=== PATIENT | female | born 1955 | race Caucasian/White ===

== ENCOUNTER 2020-05-21 08:55 | Outpatient (CLI) | payer BC, SELFPAY ==
--- NOTE | ~2020-05-21 | DEXA_ITS ---
Bone Density Report Name: Nathaly Harmon Age: 64 Sex: Female Ethnicity: White Date of : 1955 Indication: osteopenia; parental hip fracture; height loss; hysterectomy Referring Provider: JERMAINE MARCUS Study: Bone densitometry was performed. Exam Date: May 21, 2020 Accession number: [id number] Bone Density: Region BMD T-score Z-score Classification AP Spine (L1-L4) 0.929 -1.1 0.6 Osteopenia Femoral Neck (Left) 0.731 -1.1 0.4 Osteopenia Total Hip (Left) 0.791 -1.2 -0.1 Osteopenia Total Hip Bilateral Avg 0.805 -1.1 0.0 Osteopenia Femoral Neck (Right) 0.700 -1.3 0.1 Osteopenia Total Hip (Right) 0.818 -1.0 0.1 Normal World Health Organization criteria for BMD impression classify patients as: Normal (T-score at or above -1.0), Osteopenia (T-score between -1.0 and -2.5), or Osteoporosis (T-score at or below -2.5). 10-year Fracture Risk(1): Major Osteoporotic Fracture 16% Hip Fracture 0.7% Reported Risk Factors: [place] (), Neck BMD=0.700, BMI=24.8, parental fracture (1) FRAX(R) Version 3.08. Fracture probability calculated for an untreated patient. Fracture probability may be lower if the patient has received treatment. Previous Exams: Region Exam Age BMD T-score BMD Change BMD Change Date g/cm2 vs Baseline vs Previous AP Spine(L1-L4) 05/21/2020 64 0.929 -1.1 0.054(6.2%)# 0.013(1.4%) 04/29/2018 62 0.916 -1.2 0.042(4.8%)# 0.005(0.6%) 09/27/2014 58 0.911 -1.2 0.036(4.2%)# 0.047(5.5%)# 03/08/2012 56 0.864 -1.7 -0.011(-1.3%)# -0.010(-1.1%)# 10/25/2009 53 0.874 -1.6 -0.001(-0.1%) -0.001(-0.1%) 10/21/2007 51 0.875 -1.6 Total Hip(Left) 05/21/2020 64 0.791 -1.2 -0.084(-9.6%)# 0.034(4.4%)* 04/29/2018 62 0.757 -1.5 -0.117(-13.4%) -0.036(-4.6%)* 09/27/2014 58 0.793 -1.2 -0.081(-9.3%)# -0.085(-9.7%)# 03/08/2012 56 0.879 -0.5 0.004(0.5%)# 0.054(6.6%)# 10/25/2009 53 0.824 -1.0 -0.050(-5.7%)* -0.050(-5.7%)* 10/21/2007 51 0.874 -0.6 Total Hip(Right) 05/21/2020 64 0.818 -1.0 -0.032(-3.7%)# -0.011(-1.3%) 04/29/2018 62 0.829 -0.9 -0.021(-2.4%)# -0.030(-3.5%)* 09/27/2014 58 0.859 -0.7 0.010(1.1%)# 0.034(4.1%)# 03/08/2012 56 0.825 -1.0 -0.024(-2.8%)# -0.022(-2.6%)# 10/25/2009 53 0.847 -0.8 -0.002(-0.2%) -0.002(-0.2%) 10/21/2007 51 0.849 -0.8 *Denotes significance at 95% confidence level, LSC for AP Spine = 0.022 g/cm2, LSC for Total Hip = 0.027 g/cm2 Clinical Information Provided by Patient:
--- NOTE | ~2020-05-21 | MM_ITS ---
EXAMINATION: MM screening [facility] w johana HISTORY: Screening TECHNIQUE: Craniocaudal and mediolateral oblique 3-D tomosynthesis images were obtained and synthetic 2-D images were generated. CAD analysis was submitted and interpreted. COMPARISON: Comparison to multiple prior studies sequentially, with oldest reviewed study dated 03/2013. BREAST PARENCHYMAL COMPOSITION: There are scattered areas of fibroglandular density. FINDINGS: There is no evidence of suspicious mass, calcification, or architectural distortion to sugg est malignancy in either breast. There has been no suspicious interval change. IMPRESSION: 1. No mammographic evidence of malignancy. 2. Recommend routine screening mammography in one year. BI-RADS Category 1: Negative Reviewed, dictated and finalized at location A.
== END 2020-05-21 08:56 | disposition home or self-care (01) ==
LOC: ANHIMG 08:57
PROVIDERS: PCP Internal Medicine; Visit Provider Obstetrics & Gynecology
DX: Z78.0 Asymptomatic menopausal state (principal); Z12.31 Encounter for screening mammogram for malignant neoplasm of breast; M85.80 Other specified disorders of bone density and structure, unspecified site
CPT/HCPCS: 77063; 77067; 77080

== ENCOUNTER → 2020-11-14 13:50 | Outpatient (CLI) | payer BC, SELFPAY ==
--- NOTE | ~2020-11-14 | CT_ITS ---
EXAMINATION: CT abdomen pelvis wo/w con DATE: 11/14/2020 14:32 INDICATION: Hematuria TECHNIQUE: Computed tomography (CT) of the abdomen and pelvis was performed without intravenous contr ast. CT of the abdomen and pelvis was then performed with a total of 130 mL Omnipaque 350 intravenous contrast using a double-bolus technique for simultaneous opacification of the renal parenchyma and r enal collecting system. The dose-length product (DLP) was 1103.00 mGy-cm. Automated exposure control and iterative reconstruction technique were employed. COMPARISON: None FINDINGS: The lung bases are clear. The heart size is normal. The liver, spleen,, gallbladder, and ad renal glands are normal. Pancreas divisum is noted. No stones are present in the kidneys, ureters, or bladder. There is moderate to severe right hydronephrosis with abrupt transition at the ureteropelvi c junction. The remaining ureter is normal in caliber. No suspicious renal or urothelial lesion is id entified. There is calcified atherosclerosis of the aorta and many of the other arteries. No patholog ically enlarged abdominal or pelvic lymph nodes are identified. There is no free intraperitoneal gas or evidence of bowel obstruction. The appendix is normal. There is severe lumbar spondylosis. IMPRESSION: 1. Moderate to severe right hydronephrosis with abrupt transition at the ureteropelvic junction, cons istent with UPJ stricture. No suspicious renal or urothelial lesion identified. No urolithiasis. Reviewed, dictated and finalized at location A. IMPRESSION: 1. Moderate to severe right hydronephrosis with abrupt transition at the ureter opelvic junction, consistent with UPJ stricture. No suspicious renal or urothel ial lesion identified. No urolithiasis.
[2020-11-14 14:08] LABS: Estimated Glomerular Filt Rate 50
== END ==
PROVIDERS: PCP Internal Medicine; Visit Provider Internal Medicine
DX: R31.9 Hematuria, unspecified (principal); N13.30 Unspecified hydronephrosis
CPT/HCPCS: 74178; Q9967

== ENCOUNTER 2020-12-07 12:40 | Outpatient (CLI) | payer BC, SELFPAY ==
--- NOTE | ~2020-12-07 | NM_ITS ---
EXAMINATION: MAIK carlton renal scan DATE: 12/07/2020 14:02 INDICATION: Right ureteropelvic junction obstruction. TECHNIQUE: 7.8 mCi Tc-99m MAG3 was administered IV. 40 mg furosemide was administered IV immediately afterward. The patient was scanned in the supine position. A posterior abdominal radionuclide angiog nano was obtained. A subsequent time course of static images of the kidneys, ureters, and bladder was obtained. COMPARISON: CT abdomen and pelvis dated 11/14/2020 FINDINGS: The posterior abdominal radionuclide angiogram and sequential static images show normal size, positio n, and morphology of the kidneys. There is however enlargement of the right renal hilum consistent wi th hydronephrosis as seen on prior CT. Peak renal parenchymal uptake was 1.8 min in left kidney and > 27 min in right kidney (normal peak 3-5 minutes). The relative early renal uptake was 47.5% on the l eft and 52.5% on the right (<40% is abnormal). No abnormalities of the ureters or bladder are seen. T1/2 for clearance of activity from the left kidney and proximal collecting system was 9.7 minutes. T1/2 for clearance of activity from the right kidney and proximal collecting system was indeterminate with continually increasing right renal activity throughout the course of imaging. Notes on interpretation: T1/2 <10 minutes is normal, 10-15 minutes is low grade obstruction of questi onable clinical significance, 15-20 minutes is partial obstruction that is likely clinically signific ant, >20 minutes is high grade obstruction. Note that false positives may be seen with supine positio paul, dehydration, severely dilated nonobstructed kidney, atonic collecting system, poor renal functi on, and chronic furosemide use. IMPRESSION: 1. Symmetric kidney function. 2. No delay in contrast clearance from the left kidney to suggest fixed obstruction. 3. Markedly delayed contrast clearance from the right kidney likely due in part to some degree of ure teropelvic junction obstruction however interpretation is complicated by the severely dilated right r enal pelvis. The relatively symmetric bilateral renal function, actually slightly higher in the right kidney than the left, suggests the obstruction is likely low-grade/partial obstruction. Reviewed, dictated and finalized at location A. IMPRESSION: 1. Symmetric kidney function. 2. No delay in contrast clearance from the left kidney to suggest fixed obstru ction. 3. Markedly delayed contrast clearance from the right kidney likely due in part to some degree of ureteropelvic junction obstruction however interpretation is complicated by the severely dilated right renal pelvis. The relatively symmetr ic bilateral renal function, actually slightly higher in the right kidney than the left, suggests the obstruction is likely low-grade/partial obstruction.
== END 2020-12-07 12:41 | disposition home or self-care (01) ==
PROVIDERS: PCP Internal Medicine; Visit Provider Urology
DX: N13.5 Crossing vessel and stricture of ureter without hydronephrosis (principal)
CPT/HCPCS: 78708; A9562; J1940

== ENCOUNTER 2021-06-25 17:17 | Outpatient (CLI) | payer BC, SELFPAY ==
--- NOTE | ~2021-06-25 | MM_ITS ---
EXAMINATION: MM screening [facility] BI w johana HISTORY: Screening mammogram TECHNIQUE: Craniocaudal and mediolateral oblique 3-D tomosynthesis images were obtained and synthetic 2-D images were generated. CAD analysis was submitted and interpreted. COMPARISON: 05/21/2020, 05/12/2019, 04/29/2018 BREAST PARENCHYMAL COMPOSITION: There are scattered areas of fibroglandular density. FINDINGS: There is no evidence of suspicious mass, calcification, or architectural distortion to sugg est malignancy in either breast. There has been no suspicious interval change. IMPRESSION: 1. No mammographic evidence of malignancy. 2. Recommend routine screening mammography in one year. BI-RADS Category 1: Negative Reviewed, dictated and finalized at location A. NELER INSOLE
== END 2021-06-25 17:18 | disposition home or self-care (01) ==
LOC: ANHIMG 17:18
PROVIDERS: PCP Internal Medicine; Visit Provider Obstetrics & Gynecology
DX: Z12.31 Encounter for screening mammogram for malignant neoplasm of breast (principal)
CPT/HCPCS: 77063; 77067

== ENCOUNTER 2021-08-26 12:45 | Outpatient (CLI) | payer BC, SELFPAY ==
--- NOTE | ~2021-08-26 | NM_ITS ---
EXAMINATION: MAIK carlton renal scan DATE: 08/27/2021 07:34 INDICATION: Right ureteropelvic junction obstruction TECHNIQUE: 7.9 mCi Tc-99m MAG3 was administered IV. 40 mg furosemide was administered IV immediately afterward. The patient was scanned in the supine position. A posterior abdominal radionuclide angiog nano was obtained. A subsequent time course of static images of the kidneys, ureters, and bladder was obtained. COMPARISON: None FINDINGS: The posterior abdominal radionuclide angiogram and sequential static images show normal size, positio n, and morphology of the kidneys. Peak renal parenchymal uptake was 3.5 min in left kidney and 5.5 mi n in right kidney (normal peak 3-5 minutes). The relative early renal uptake was 46% on the left and 54% on the right (<40% is abnormal). Asymmetric increased activity seen at the right renal pelvis on the delayed images consistent with at least mild hydronephrosis. No abnormalities of the ureters or bladder are seen. T1/2 for clearance of activity from the left kidney and proximal collecting system was 11 minutes. T1/2 for clearance of activity from the right kidney and proximal collecting system was 23 minutes. Notes on interpretation: T1/2 <10 minutes is normal, 10-15 minutes is low grade obstruction of questi onable clinical significance, 15-20 minutes is partial obstruction that is likely clinically signific ant, >20 minutes is high grade obstruction. Note that false positives may be seen with supine positio paul, dehydration, severely dilated nonobstructed kidney, atonic collecting system, poor renal functi on, and chronic furosemide use. IMPRESSION: 1. Symmetric kidney function. 2. Delayed activity clearance from the right kidney with at least mild right hydronephrosis consiste nt with ureteropelvic junction obstruction which has improved since the prior study. Quantitatively t his would be consistent with a high-grade obstruction however as previously detailed, given the prese rved relatively symmetric renal function the degree of obstruction may be exaggerated by residual dil ation of the renal pelvis. Reviewed, dictated and finalized at location A. [employer] IMPRESSION: 1. Symmetric kidney function. 2. Delayed activity clearance from the right kidney with at least mild right h ydronephrosis consistent with ureteropelvic junction obstruction which has impr alfredo since the prior study. Quantitatively this would be consistent with a high -grade obstruction however as previously detailed, given the preserved relative ly symmetric renal function the degree of obstruction may be exaggerated by res idual dilation of the renal pelvis.
== END 2021-08-26 12:46 | disposition home or self-care (01) ==
LOC: ANHIMG 12:45
PROVIDERS: PCP Internal Medicine; Visit Provider Urology
DX: N13.5 Crossing vessel and stricture of ureter without hydronephrosis (principal)
CPT/HCPCS: 78708; A9562; J1940

== ENCOUNTER 2022-04-08 08:10 | Outpatient (CLI) | payer BC, SELFPAY ==
--- NOTE | 2022-04-08 08:57 | ECG_ITS ---
Measurements Intervals [place] Rate: 68 P: 63 HI: 134 QRS: 25 QRSD: 94 T: 70 QT: 416 QTc: 445 Interpretive Statements SINUS RHYTHM NONSPECIFIC T-WAVE ABNORMALITY Electronically Signed On 04-08-2022 11:43:17 CDT by Porter Veras M.D.
[2022-04-08 09:29] LABS: Basophils Percent Auto 0.4 % (0.2-1.2); Eosinophils Absolute Auto 0.1 K/mm3 (0-0.3); Eosinophils Percent Auto 1.6 % (0-4.4); Hematocrit 45.2 % (37.0-47.0); Immature Granulocyte Absolute 0.01 K/mm3 (0.00-0.031); Immature Granulocyte Percent A 0.1 % (0-0.5); Lymphocytes Absolute Auto 1.65 K/mm3 (0.9-3.2); Lymphocytes Percent Auto 24.4 % (18.3-44.2); Mean Corpuscular HGB Conc 33.2 g/dl (32-36); Mean Corpuscular Hemoglobin 31.9 pg (26-34); Mean Corpuscular Volume 96.2 fl (80-100); Monocytes Absolute Auto 0.7 K/mm3 (0.1-0.6); Monocytes Percent Auto 10.1 % (2.6-8.5); Neutrophils Absolute Auto 4.3 K/mm3 (1.3-6.7); Neutrophils Percent Auto 63.4 % (45.5-73.1); Platelet Count Result 191 k/mm3 (150-375); Red Cell Distribution Width 12.2 % (11.5-14.5); White Blood Count 6.8 K/mm3 (4.5-10.0)
[2022-04-08 09:39] LABS: Urine Cotinine NEGATIVE
[2022-04-08 09:46] LABS: Albumin Level 4.6 g/dL (3.5-5.1); Estimated Glomerular Filt Rate 56; Glucose 105 mg/dL (65-110)
[2022-04-08 09:54] LABS: Hemoglobin A1C 5.4 % (<5.7)
== END 2022-04-08 08:11 | disposition home or self-care (01) ==
PROVIDERS: PCP Internal Medicine; Visit Provider Orthopaedic Surgery
DX: Z01.818 Encounter for other preprocedural examination (principal); M17.12 Unilateral primary osteoarthritis, left knee; R94.31 Abnormal electrocardiogram [ECG] [EKG]
CPT/HCPCS: 80307; 82040; 82565; 82947; 83036; 85025; 86850; 86900; 86901; 87081; 93005

== ENCOUNTER 2022-04-21 00:12 | Day surgery (SDC) | payer BC, SELFPAY ==
[2022-04-08 07:45] VITALS: BP 142/86; PULSE 80; RESP 18; TEMP 37.1; O2SAT 100; BMI 24.2
--- NOTE | 2022-04-08 07:46 | PC.NURSE ---
Addendum entered by Jolene Carreon RN 04/08/22 08:51: PT AWARE TO ARRIVE @ 0830 THE MORNING OF SURGERY 04/21/22 Original Note: PRE-OP INSTRUCTIONS, PLEASE READ CAREFULLY Report to the Outpatient Waiting Room, entrance under the green pavilion located off [facility], at time _1030_ on date _04/21/22_. OR Time: _1030_. PACK A SMALL OVERNIGHT BAG AND LEAVE IN THE CAR, ALONG WITH YOUR WALKER. - A mask is required within the hospital. - You and your visitor will be asked to self-screen and do not enter if you have any COVID symptoms. - Only one visitor and NO children visitors are allowed at this time. - The patient visitor is requested to leave or wait in car when not with patient due to restrictions. - VISITING HOURS 10AM-8PM, PARK IN FRONT [facility] AND USE MAIN HOSPITAL ENTRANCE Patients may have clear liquids (water, carbonated beverages, clear teas, apple juice) until 3 hours prior to surgery (0730 AM) with a maximum of 20 ounces. - No food from midnight until time of surgery Take the following medications with a SIP of water the morning of surgery: _NONE_ Medications to discontinue per ANESTHESIA -_VITAMINS/SUPPLEMENTS 3 DAYS PRIOR TO SURGERY, Date to take last dose 04/17/22_ Please no make-up, nail sudanese, hairspray, perfume, deodorant, or body powder the day of surgery. No jewelry (including any body piercings) or valuables the day of surgery, leave them at home. Please take a shower or bath the night before, or the morning of, surgery with an antibacterial soap. Wear comfortable, loose fitting clothing. - Jewelry must be removed prior to entering the operating room. Rings and piercings that are not removed may be cut off. - The hospital will not accept responsibility for valuables. - Please leave all valuables, including medications, at home the day of surgery. If you are going home after surgery, a licensed fleet driver must drive you home. - NO public transportation without another adult. - We recommend that an adult stay with you for 24 hours following discharge. - We also recommend that you do not drive, make important decision, drink alcoholic beverages, or take any drugs that were not prescribed by your health care provider for at least 24 hours after your discharge time. Follow any additional instructions given to you from your surgeon. If you or anyone in your household have experienced Covid symptoms in the past week, please notify your surgeon or the nurse liaison at the phone number below for possible testing. Instructions given to _PT_and asked if any additional questions and then verbalized understanding. Patient advised to call surgeon office or pre surgery nurse liaison [phone] if any additional questions.
[2022-04-21] VITALS (14 sets, daily range): BP systolic 124–149; BP diastolic 61–82; PULSE 72–94; RESP 12–20; TEMP 36.2–37.4; O2SAT 96–100
--- NOTE | ~2022-04-21 | XR_ITS ---
EXAMINATION: XR knee LT 2V DATE: 04/21/2022 13:39 INDICATION: Total left knee arthroplasty. Postop. TECHNIQUE: 2 views of left knee were obtained. COMPARISON: Left knee radiograph 01/29/2022 FINDINGS: There is a total left knee arthroplasty with patellar resurfacing in near-anatomic alignmen t. No fracture. There is gas in the knee joint and soft tissues, consistent with recent surgery. IMPRESSION: 1. Total left knee arthroplasty in near-anatomic alignment. Reviewed, dictated and finalized at location A.
--- NOTE | 2022-04-21 06:28 | WPDANESEPPF ---
Anes - Initial Pre Proc Eval Procedure: Operation Date: 04/21/22 10:30 Proposed Procedures p Left Total Knee Arthroplasty - Gary Box MD Date/Time: 04/21/22 06:28 Surgeon: Gary Box MD Pre Op Diagnosis: O.A. Left Knee Patient Data Age: 66 Gender: F Height: 1.61 m Weight: 63.1 kg Last Vital Signs Temp 37.1 C 04/08/22 07:45 Pulse 80 04/08/22 07:45 Resp 18 04/08/22 07:45 BP 142/86 H 04/08/22 07:45 Pulse Ox 100 04/08/22 07:45 O2 Del Method Room Air 04/08/22 07:45 Allergies Allergy/AdvReac Type Severity Reaction Status Date / Time No Known Allergies Allergy Verified 04/16/22 09:09 Home Medications Medication Instructions Recorded Confirmed Type calcium carb-vit D3-minerals 600 1 tablet PO BID 07/12/20 04/16/22 History mg calcium-400 unit tablet folic acid 0.8 mg capsule 0.8 mg PO DAILY 07/12/20 04/16/22 History mecobalamin (vitamin B12) 1,000 1,000 mcg sublingual DAILY 07/12/20 04/16/22 History mcg disintegrating tablet,sublingual cholecalciferol (vitamin D3) 25 2,000 unit PO DAILY 03/23/21 04/16/22 History mcg (1,000 unit) capsule rosuvastatin 40 mg tablet See Rx Instructions .Route 04/29/21 04/16/22 Rx .COMPLEX #90 tabs ezetimibe 10 mg tablet See Rx Instructions .Route 07/08/21 04/16/22 Rx .COMPLEX #90 tabs rivaroxaban 10 mg tablet (Xarelto) 10 mg PO DAILY PE Prophylaxis s/p 04/16/22 04/16/22 Rx surgery 14 days #14 tabs Patient hx anesthesia problems: none Family hx anesthesia problems: none Results Review: All pre-operative results and documents have been reviewed as part of the pre-operative evaluation. [facility] Past Medical History Medical History BMI 22.0-22.9, adult Colon cancer screening DJD (degenerative joint disease) Elevated glucose Encounter for preventive health examination Encounter for routine adult health examination without abnormal findings Encounter for screening mammogram for malignant neoplasm of breast Hematuria History of colon polyps History of hydronephrosis History of vaginal delivery x 2 Hyperlipidemia On skilled nursing drug therapy Osteoarthritis of left knee Prediabetes Prolapsed bladder Uterine prolapse Vitamin D deficiency Surgical History Surgical History History of hysterectomy, supracervical History of kidney surgery History of sacrocolpopexy Family History Family History Father Family history of diabetes mellitus in first degree relative Diabetes mellitus Mother Family history of cardiovascular disease Family history of aortic aneurysm Social History Social History Smoking status: Never smoker Second hand tobacco smoke exposure: No Additional smoking assessment comments: PT DENIES ALL FORMS OF TOBACCO USE Alcohol intake: never Substance use: never Substance use type: does not use Living arrangements: with family Spiritual care concerns: No Anes - Eval Final PreProcedure Day of Procedure 04/21/22 06:28 Patient weight: normal Heart: regular rate and rhythm Lungs: clear to auscultation and normal air movement Airway: Mallampati scale class II Neurological: alert and oriented Last oral intake: >/= 8 hours ASA classification: II Emergent: no Anesthetic plan: proceed Anesthesia type and monitoring: regional spinal and standard monitoring Results Review: All pre-operative results and documents have been reviewed as part of the pre-operative evaluation. Informed Consent: The patient's anesthetic plan and its attendant risks and benefits were discussed with the patient/family/POA. Questions were solicited and answers provided to the satisfaction of the patient/family/POA.
--- NOTE | 2022-04-21 06:30 | WPDANESPNB ---
Anes - Peripheral Nerve Block Date/Time: 04/21/22 06:30 I have discussed with the patient/family/POA the placement of a peripheral nerve block for post-operative pain management, including associated risks, benefits, complications, and side effects. Alternative methods of post-operative analgesia were detailed. Questions were solicited and answers provided to the satisfaction of the patient/family/POA. Time-Out: A pre-procedural Time-Out was completed immediately before starting the procedure and confirmed: Patient Identification, Site, Procedure, Patient Position and the Availability of Requisite Equipment. Clinical Indications: Acute post-operative pain management requested by the operative surgeon. Nerve Block Insertion Note Anes-nerve block: adductor canal left Patient position: supine Skin prep: chlorhexidine Needle: 22 gauge, stimulating, insulated echogenic needle. Needle length: 80 mm Technique: ultrasound Injectate: bupivacaine 0.5% with epi 5 mcg/ml (30cc - no epi) Observations: tolerated well Complications: none Procedure start time:: 1008 Procedure end time:: 1012
[2022-04-21] MEDS: LACTATED RINGERS 1,000 ML 30 ML IV CONT ×2 (09:29→13:24)
[2022-04-21] MEDS: TRANEXAMIC ACID 1,000MG/ISO100 1,000 MG/100 ML BAG 200 MG IVPB (09:30)
[2022-04-21] MEDS: ACETAMINOPHEN 500 MG TABLET 1000 MG PO (09:31)
--- NOTE | 2022-04-21 09:35 | WPDHPUPDATE1 ---
History and Physical Update Update Date/Time: 04/21/22 09:35 History and Physical has been reviewed, including an updated exam of the patient. There are NO changes in the patient's condition. Risks, benefits, and alternatives have been discussed and questions answered. Patient agrees to proceed with procedure.
[2022-04-21] MEDS: ceFAZolin 2 GM/D5W 50 ML 2 GM/50 ML BAG IVPB ×2 (10:34→17:30)
--- NOTE | 2022-04-21 13:24 | P.OP_ITS ---
Procedure Note - Detailed Date of Procedure 04/21/22 Pre-op Diagnosis O.A. Left Knee Post-op Diagnosis Same Procedure Performed Left total knee replacement Surgeon Gary Box MD [employer] Cezar Bejarano Anesthesia Regional and Spinal Description of Procedure The patient was identified and proper site identified. In the preop holding area the anesthesia team performed a left-sided sub sartorial block after which the patient was taken to the operating room and transferred to the OR table positioning supine taking care to pad the torso and extremities. After a spinal anesthetic was administered, a nonsterile tourniquet was placed high on the left thigh. The left lower extremity was prepped and draped in the usual sterile fashion. The extremity was exsanguinated and with the knee flexed tourniquet was inflated to 300 mmHg remaining up for approximately 74 minutes. An anterior midline incision was made and a mid vastus approach was used. Infra and suprapatellar fat pads were excised. Patella was resected leaving 15 mm thickness and prepared for the size 31 round three peg component. Using the intramedullary guide the distal femur was cut in the proper orientation for the size 65 femoral component. Using the extramedullary guide the tibia was cut perpendicular to the long axis protecting collateral ligaments and popliteal structures. It was sized to a 67. Flexion and extension gaps were balanced through judicious recutting of the distal femur. Trial reduction was undertaken and the weight-bearing line was noted to passed through the center of the joint. Proximal tibia was drilled and punched in the proper orientation for the real component. Trial components were removed. The bone surfaces were washed with pulsatile lavage and dried. The real components were cemented simultaneously. The knee was held in extension and the patella held clamped until the cement had cured. Excess cement was removed from the joint. After trialing it was determined that the 11mm insert gave full range of motion from 0-120 degrees of flexion and the patella tracked in the femoral groove with no lift-off. After final lavage the joint the real size 11 E poly insert was placed and secured with a locking bar. A Betadine and saline wash was placed into the wound and allowed to sit for approximately 3 minutes and then evacuated. Periarticular tissues were infiltrated with 60 cc of the arthroplasty solution. Surgicel powder was applied into the wound during the closure. The extensor mechanism was repaired with #2 Vicryl suture and 0 looped PDS suture. Subcu was reapproximated with 3-0 Monocryl and 2-0 Stratafix with tissue adhesive for the skin. A sterile dressing was applied. She tolerated the procedure well, was awakened and extubated, transferred to the bed and was taken to recovery area in stable condition. There were no known intraoperative complications. Perioperative antibiotics were administered. Estimated Blood Loss 200 Tourniquet Time 74 Drains No Packing No Pathology None sent Complications No immediate complications Condition Stable Disposition PACU
[2022-04-21] MEDS: fentaNYL CITRATE INJ (*CRX) 100 MCG/2 ML VIAL 25 MCG IV PUSH ×4 (13:43→13:49)
--- NOTE | 2022-04-21 15:32 | ADMGEN ---
This patient, Nathaly Harmon, was admitted to Medical Room 246-. Patient/family oriented to hospital policies and general routines including ID bracelet, bed and alarms, visiting hours, pain management, procedures, bathroom and other care routines, personal items, smoking policy, room service/diet, and visiting hours. Information on how to activate the Rapid Response Team has been discussed. Patient/Family are encouraged to report perceived risks to care and to ask questions if they do not understand what they are told or what they should do.
[2022-04-21] MEDS: SODIUM CHLORIDE 0.9% IV 1,000 ML 125 ML IV CONT (15:41)
[2022-04-21] MEDS: SENNA/DOCUSATE SODIUM TABLET 2 TAB PO (17:29)
[2022-04-21] MEDS: KETOROLAC 15 MG/ML VIAL (*BKC) IV PUSH (17:29)
[2022-04-21] MEDS: oxyCODONE/ACETAMINOPHEN (*CRX) 5-325 MG TABLET 1 TABLET PO ×2 (17:30→20:04)
[2022-04-21] MEDS: FAMOTIDINE 20 MG TABLET PO (20:04)
[2022-04-22 00:23] VITALS: BP 123/64; PULSE 75; RESP 16; TEMP 37.2; O2SAT 100
[2022-04-22] MEDS: oxyCODONE/ACETAMINOPHEN (*CRX) 5-325 MG TABLET 1 TABLET PO ×4 (00:36→12:43)
[2022-04-22] MEDS: KETOROLAC 15 MG/ML VIAL (*BKC) IV PUSH ×2 (00:48→05:41)
[2022-04-22] MEDS: ceFAZolin 2 GM/D5W 50 ML 2 GM/50 ML BAG IVPB ×2 (01:00→09:02)
[2022-04-22 04:48] VITALS: BP 113/37; PULSE 82; RESP 16; TEMP 36.6; O2SAT 98
--- NOTE | 2022-04-22 08:07 | PM.DS ---
DS: Admitting Diagnosis Discharge Date 04/22/2022 Admitting Diagnosis Left knee osteoarthritis DS: Discharge Diagnosis Discharge Diagnosis (1) Status post total left knee replacement: Code(s): Z96.652 - Presence of left artificial knee joint Status: Acute Plan 66-year-old female admitted for observation after total left knee replacement on 04/21/[address] Box. She did have some nausea yesterday evening but states that she is feeling much better this morning. Postoperative instructions and wound care discussed with her in detail. She had no further questions. Plan to see therapy today prior to discharge home. She is scheduled in 2 weeks for follow-up with wound check. She was informed to call our office with any further questions or concerns prior to that follow-up. DS: Summary Hospital Course Reason for hospitalization: Observation after outpatient procedure. Hospital Course: 66-year-old female admitted for observation after left total knee replacement with Dr. Box. Uneventful overnight stay. Plan to see therapy today prior to discharge home. Status at Discharge Functional status at discharge: uses cane/walker Overall status at discharge: patient is progressing back to baseline Time Spent with Patient Time attestation: Total time spent providing and/or coordinating discharge services: Time spent: Less than 30 minutes Exam Const: General: comfortable and no acute distress Eyes: General: appearance normal, both eyes and all related structures Resp: Effort & Inspection: normal respiratory effort GI: Inspection: non-distended Skin: General skin exam: normal color Extrem: Other: Exam of the left knee demonstrates a clean and dry surgical dressing. Rrzf-gw-ewxizrul swelling around the surgical site. No numbness or tingling down the leg. She is able to dorsiflex and plantar flex the foot without difficulty. Neurovascular status left lower extremity is intact. Calves negative. Psych: Mental Status: mental status grossly normal Discharge Plan Discharge Patient Disposition: Home, Self-Care Discharge Instructions: 3 times daily for 20 minutes each time, reclining in bed with ice packs over the incision and a pillow underneath the calf of the affected leg, not under the knee. Your wound is glued so it is okay to remove the dressing, get into the shower and get the wound wet in two days. Be sure to read through all the information that came from a my office and the hospital. Most of the answers you will need can be found that material. Call the office with any questions that you cannot find answers to, or concerns you may have. After the Xarelto is completed, start taking one coated 325 mg aspirin daily and do this for four more weeks. Please call [facility] at as soon as possible to arrange for/verify your follow-up appointment to be seen in 2 weeks. Also, call the office with any orthopedic/surgical related questions prior to follow-up. Be sure to get up and move around several times daily but do not overdo it. Take the arthritis formula Tylenol 650 mg tablet on an 8 hour schedule. A good 8 hour schedule is: 6:00 a.m., 2:00 p.m., 10:00 p.m. you may take the prescribed pain medication along with the Tylenol; it is not to be taken instead of the Tylenol. I would like for you to take the Tylenol on a schedule for 2-3 weeks. You have also been given a prescription for Celebrex. This is an anti-inflammatory that you can take for 1 week following surgery. Use the laxative Senekot S twice daily for 2 weeks after discharge while taking the prescription pain medication. Use Miralax once daily for 2 weeks after discharge while taking the prescription pain medication. Once the Xarelto is completed, if you wish to supplement your pain regimen with jkxp-wfl-rhyuosm anti-inflammatory such as Advil or Aleve, that is fine. Follow the label instructions. Do not take this medicine if you
[2022-04-22 08:15] VITALS: O2SAT 95
[2022-04-22 08:48] VITALS: BP 118/62; PULSE 80; RESP 16; TEMP 36.5; O2SAT 96
[2022-04-22] MEDS: CYANOCOBALAMIN 1,000 MCG TABLET 1000 MCG PO (08:50)
[2022-04-22] MEDS: polyethylene glycoL 3350 17 GM POWD.PACK PO (08:50)
[2022-04-22] MEDS: CHOLECALCIFEROL 1,000 UNITS TABLET 2000 UNITS PO (08:50)
[2022-04-22] MEDS: FOLIC ACID 0.4 MG TABLET 0.8 MG PO (08:50)
[2022-04-22] MEDS: SENNA/DOCUSATE SODIUM TABLET 2 TAB PO (08:51)
[2022-04-22] MEDS: EZETIMIBE 5 MG TABLET BY MOUTH (08:51)
[2022-04-22] MEDS: ROSUVASTATIN 10 MG TABLET BY MOUTH (08:51)
[2022-04-22] MEDS: FAMOTIDINE 20 MG TABLET PO (10:01)
[2022-04-22] MEDS: RIVAROXABAN 10 MG TABLET PO (12:43)
[2022-04-22 12:48] VITALS: BP 117/66; PULSE 74; RESP 16; TEMP 36.7; O2SAT 100
--- NOTE | 2022-04-22 13:02 | WPDANESPN ---
Anes - Prog Note Post-Op Date/Time: 04/22/22 10:49 Cardiovascular status: normal Respiratory status: normal Airway patency: baseline Mental status: baseline Post-Op hydration status: normal Vital Signs: Last Vital Signs Temp 97.7 F 04/22/22 08:48 Pulse 80 04/22/22 08:48 Resp 16 04/22/22 08:48 BP 118/62 04/22/22 08:48 Pulse Ox 96 04/22/22 08:48 O2 Del Method Room Air 04/22/22 10:00 O2 Flow Rate 10 04/21/22 13:24 Pain Score (VAS): 3 I/O: Intake & Output 04/21/22 04/22/22 04/22/22 23:59 07:59 15:59 Intake Total 852 150 410 Output Total 600 1400 Balance 252 -1250 410 Post-procedural complaints: nausea Patient Feedback: Patient satisfied with anesthetic care. Pt verbalized good relief with PNB.
[2022-04-22] MEDS: KETOROLAC 10 MG TABLET PO (13:29)
--- NOTE | 2022-04-22 13:35 | PCPTNOTE ---
Patient declined PT this afternoon due to anticipated discharge.
== END 2022-04-22 13:44 | disposition home or self-care (01) ==
LOC: ANHSURGERY 13:23 → ANH2MED 15:21
PROVIDERS: PCP Internal Medicine; Visit Provider Orthopaedic Surgery
PROC: (CPT 27447; principal; 2022-04-21 10:30)
DX: M17.12 Unilateral primary osteoarthritis, left knee (principal); G89.18 Other acute postprocedural pain; R31.9 Hematuria, unspecified; E78.5 Hyperlipidemia, unspecified; R73.03 Prediabetes; M19.90 Unspecified osteoarthritis, unspecified site; E55.9 Vitamin D deficiency, unspecified; Z79.01 Long term (current) use of anticoagulants
CPT/HCPCS: 27447; 64447; 73560; 97110; 97161; 97165; A9270; C1713; C1776; J0171; J0690; J1885; J2250; J2270; J2704; J2795; J3010; J7030; J7120

== ENCOUNTER 2022-07-23 09:15 | Outpatient (RCR) | payer BC, SELFPAY ==
--- NOTE | 2022-04-28 13:58 | PTOPEVAL1 ---
Assessment and note entered by Edouard Dean, PT, DPT Evaluation Information Assessment Status Evaluation Diagnosis L TKA Onset 04/21/22 Subjective Information Pt states she has been trying to complete her exercises at home. She reports her pain is well controlled that she has more stiffness than anything. Pt does have basement stairs that she usually uses daily, she has not used them yet. Reported Pain Level Pain Score 2: Self Report Assessment PT Clinical Summary Nathaly presents to therapy today following a L TKA on 04/21/22. Today she ambulates into the clinic with a wheeled walker. She demonstrates decreased active and passive ROM, active to 90 deg and passive to 100 deg this date. She is currently lacking 30 degs of terminal knee extension during seated long arc quad, and 10 deg of knee extension passively. Skilled physical therapy services are indicated to address the deficits noted above, to manage pain, to promote mobility, and to return to baseline funciton. Plan of Care Interventions Electrical Stimulation,Gait Training,Hot Pack/Cold Pack,Manual Therapy,Neuro Re-education,Patient/ Caregiver Educati,Therapeutic Activities, Therapeutic Exercise PT Services Indicated Yes Treatment Frequency and 2x/wk for 6 wks Duration These treatments will address the objective and functional deficits as defined above. The patient will be advanced safely and appropriately in order for the patient to progress towards his/her prior level of function. Additional exercises will be introduced and as well as a comprehensive home exercise program upon discharge, if needed, ?to ensure carryover of functional gains achieved in the clinic. This treatment plan has been reviewed and agreement upon by the patient.
--- NOTE | 2022-06-05 15:57 | PTOPPROG ---
Assessment and note entered by Edouard Dean, PT, DPT Evaluation Information Assessment Status Progress Diagnosis L TKA Onset 04/21/22 Subjective Information Pt states her exercises are getting easier at home . She states she does her exercises first thing in the morning. She has been running her own errands but she states after a few hours being up and around her leg starts to get sore. She is now walking with a cane. Assessment PT Clinical Summary Nathaly presents to therapy today following 11 visits of therapy to treat her L TKA performed in 04/21/22. Today she demonstrates improved active and passive knee flexion, getting to 100 deg and 120 deg respectively. She continues to lack terminal knee extension in supine as well as in a seated long arc quad. She has progressed to ambulation with a cane without any deviations other than lack of terminal knee extension. Continuation of skilled physical therapy services are indicated to address the remaining deficits, to improve mobility, and to return to baseline function. Plan of Care Interventions Electrical Stimulation,Gait Training,Hot Pack/Cold Pack,Manual Therapy,Neuro Re-education,Patient/ Caregiver Educati,Therapeutic Activities, Therapeutic Exercise PT Services Indicated Yes Treatment Frequency and 2x/wk for 6 wks Duration These treatments will address the objective and functional deficits as defined above. The patient will be advanced safely and appropriately in order for the patient to progress towards his/her prior level of function. Additional exercises will be introduced and as well as a comprehensive home exercise program upon discharge, if needed, ?to ensure carryover of functional gains achieved in the clinic. This treatment plan has been reviewed and agreement upon by the patient.
--- NOTE | 2022-07-17 14:51 | PTOPPROG ---
Assessment and note entered by Edouard Dean, PT, DPT Evaluation Information Assessment Status Progress Diagnosis L TKA Onset 04/21/22 Subjective Information Pt states she feels like she has really improved over the last month. She feels like her ROM has really improved and her walking is better. She met with her ortho doc yesterday and she is able to return to work, light duty working 4 hour shifts. She reports 3/10 pain at the worst in the last week. Pt reports 90% improvement from where she wants to be. Assessment PT Clinical Summary Nathaly presents to therapy today for her progress report following 22 visits of therapy to treat her L TKA on 04/21/22. Today she demonstrates improved L knee strength and ROM. She has passive ROM from 0-125 but actively can only achieve -10 to 105 deg. She has improved her gait speed compared to her last progress note but still demonstrates lack of terminal knee extension during terminal swing and single leg stance phase. Continuation of skilled physical therapy services are indicated to further progress gait, strength, ROM, functional mobility, and to return to baseline function. Plan of Care Interventions Electrical Stimulation,Gait Training,Hot Pack/Cold Pack,Manual Therapy,Neuro Re-education,Patient/ Caregiver Educati,Therapeutic Activities, Therapeutic Exercise PT Services Indicated Yes Treatment Frequency and 1x/wk for 5 wks Duration These treatments will address the objective and functional deficits as defined above. The patient will be advanced safely and appropriately in order for the patient to progress towards his/her prior level of function. Additional exercises will be introduced and as well as a comprehensive home exercise program upon discharge, if needed, ?to ensure carryover of functional gains achieved in the clinic. This treatment plan has been reviewed and agreement upon by the patient.
--- NOTE | 2022-07-25 13:51 | PCPTNOTE ---
This treatment is being continued on visit number [id number]. Please see documentation on both accounts to view progress. Completed interventions, outcomes, and problems have been marked as Inactive to facilitate the copying of the Care plan routine for recurring accounts.
== END 2022-07-25 10:37 | disposition home or self-care (01) ==
LOC: ANHGOSHPT 09:15
PROVIDERS: PCP Internal Medicine; Visit Provider Orthopaedic Surgery
DX: Z47.1 Aftercare following joint replacement surgery (principal); Z96.652 Presence of left artificial knee joint
CPT/HCPCS: 97110; 97112; 97116; 97140; 97161; 97530

== ENCOUNTER 2022-08-13 08:00 | Outpatient (RCR) | payer BC, SELFPAY ==
--- NOTE | 2022-07-25 13:51 | PCPTNOTE ---
The treatment documented on this account is a continuation of the treatment documented on visit number [id number]. Please see documentation on both accounts to view progress. The Plan of Care has been transitioned and updated within the new V#. I have addressed and agree with the discipline specific Problems, Interventions, and Goals for the current certification period. Completed interventions, outcomes, and problems have been marked as Inactive to facilitate the copying of the Care plan routine for recurring accounts.
--- NOTE | 2022-08-13 09:01 | PTOPDC ---
Assessment and note entered by Edouard Dean, PT, DPT Evaluation Information Assessment Status Discharge Diagnosis L TKA Onset 04/21/22 Subjective Information Pt states she continues to see improvements in her knee. She states she is on her last week of 4 hours shifts and next week increases it to 8 hour shifts. She reports good compliance with her HEP. Reported Pain Level Pain Score 0: Self Report Assessment PT Clinical Summary Nathaly presents to therapy today for her progress report following 23 visits of skilled therapy to treat her L TKA performed on 04/21/22. Today she demonstrates active and passive ROM this is mildly actively but WFL passively. She continues to demonstrate lack of terminal knee extension during terminal stance and swing phase with ambulation. She demonstrates good functional mobility, good functional squats, and good body mechanics with functional lifts. She has met or progressed well towards all of her therapy goals and no longer requires skilled therapy services. She will be discharged at this time with the instructions to continue her HEP upon discharge and to follow up with her referring provider if needed. Plan of Care PT Services Indicated No Treatment Frequency and to be discharged Duration
== END 2022-08-13 15:50 | disposition home or self-care (01) ==
LOC: ANHPT 08:00
PROVIDERS: PCP Internal Medicine; Visit Provider Orthopaedic Surgery
DX: Z47.1 Aftercare following joint replacement surgery (principal); Z96.652 Presence of left artificial knee joint
CPT/HCPCS: 97110; 97112; 97140; 97530; 99199

== ENCOUNTER 2022-10-02 14:59 | Outpatient (CLI) | payer BC, SELFPAY ==
--- NOTE | ~2022-10-02 | DEXA_ITS ---
Bone Density Report Name: UZIEL LORENZ Age: 66 Sex: Female Ethnicity: White Date of : 1955 Indication: osteopenia; height loss; hysterectomy; postmenopausal Referring Provider: JERMAINE MARCUS Study: Bone densitometry was performed. Exam Date: October 02, 2022 Accession number: [id number] Bone Density: Region BMD T-score Z-score Classification AP Spine(L1-L4) 0.943 -0.9 0.9 Normal Femoral Neck (Left) 0.681 -1.5 0.0 Osteopenia Total Hip (Left) 0.668 -2.2 -1.0 Osteopenia Femoral Neck (Right) 0.633 -1.9 -0.4 Osteopenia Total Hip (Right) 0.748 -1.6 -0.3 Osteopenia Total Hip Mean 0.708 -1.9 -0.7 Osteopenia World Health Organization criteria for BMD impression classify patients as: Normal (T-score at or above -1.0), Osteopenia (T-score between -1.0 and -2.5), or Osteoporosis (T-score at or below -2.5). 10-year Fracture Risk(1): Major Osteoporotic Fracture 11% Hip Fracture 1.6% Reported Risk Factors: [place] (), Neck BMD=0.633, BMI=24.4 (1) FRAX(R) Version 3.08. Fracture probability calculated for an untreated patient. Fracture probability may be lower if the patient has received treatment. Previous Exams: Region Exam Age BMD T-score BMD Change BMD Change Date g/cm2 vs Baseline vs Previous AP Spine (L1-L4) 10/02/2022 66 0.943 -0.9 0.032 (3.5%)* 0.014 (1.5%) 05/21/2020 64 0.929 -1.1 0.018 (2.0%) 0.013 (1.4%) 04/29/2018 62 0.916 -1.2 0.005 (0.6%) 0.005 (0.6%) 09/27/2014 58 0.911 -1.2 Total Hip(Left) 10/02/2022 66 0.668 -2.2 -0.126 (-15.8% -0.123 (-15.5% 05/21/2020 64 0.791 -1.2 -0.003 (-0.4%) 0.034 (4.4%)* 04/29/2018 62 0.757 -1.5 -0.036 (-4.6%) -0.036 (-4.6%) 09/27/2014 58 0.793 -1.2 Total Hip(Right) 10/02/2022 66 0.748 -1.6 -0.111 (-12.9% -0.069 (-8.5%) 05/21/2020 64 0.818 -1.0 -0.041 (-4.8%) -0.011 (-1.3%) 04/29/2018 62 0.829 -0.9 -0.030 (-3.5%) -0.030 (-3.5%) 09/27/2014 58 0.859 -0.7 *Denotes significance at 95% confidence level, LSC for AP Spine = 0.022 g/cm2, LSC for Total Hip = 0.027 g/cm2 Clinical Information Provided by Patient: Has used the following medications: Vitamin D, Calcium Has the following medical conditions: Hysterectomy Patient maximum height was 65 Drinks caffeinated beverages Onset of menses at age 13 Number of children 2 Impression: The patient has low bone mass, based on the Left Total Hip
--- NOTE | ~2022-10-02 | MM_ITS ---
EXAMINATION: MM screening светлана BI w johana HISTORY: Screening mammogram TECHNIQUE: Craniocaudal and mediolateral oblique 3-D tomosynthesis images were obtained and synthetic 2-D images were generated. CAD analysis was submitted and interpreted. COMPARISON: 06/25/2021, 05/21/2020, 05/12/2019 bilateral screening mammogram examinations BREAST PARENCHYMAL COMPOSITION: There are scattered areas of fibroglandular density. FINDINGS: There is no evidence of suspicious mass, calcification, or architectural distortion to sugg est malignancy in either breast. There has been no suspicious interval change. IMPRESSION: 1. No mammographic evidence of malignancy. 2. Recommend routine screening mammography in one year. BI-RADS Category 1: Negative Reviewed, dictated and finalized at location A. TED HISTORY TOUR GUIDE
== END 2022-10-02 15:00 | disposition home or self-care (01) ==
PROVIDERS: PCP Internal Medicine; Visit Provider Obstetrics & Gynecology
DX: Z12.31 Encounter for screening mammogram for malignant neoplasm of breast (principal); Z78.0 Asymptomatic menopausal state; M85.89 Other specified disorders of bone density and structure, multiple sites
CPT/HCPCS: 77063; 77067; 77080

== ENCOUNTER 2023-03-02 10:13 | Outpatient (CLI) | payer BC, SELFPAY ==
--- NOTE | ~2023-03-02 | US_ITS ---
US retroperitoneal comp 03/02/2023 11:35 Procedure: Realtime transabdominal ultrasound of the kidneys and bladder. Indication: UPJ stricture status post right para. Hematuria. Comparison: CT dated 11/14/2020. Findings: Renal echotexture is normal bilaterally without contour deforming mass or renal calculus. T here is mild bilateral hydronephrosis. The right kidney measures 9.6 cm and left kidney measures 8.4 cm. Bladder within normal limits. Impression: 1: Mild bilateral hydronephrosis. Reviewed, dictated and finalized at location A. Impression: 1: Mild bilateral hydronephrosis.
== END 2023-03-02 10:14 ==
PROVIDERS: PCP Internal Medicine; Visit Provider Urology
DX: N13.30 Unspecified hydronephrosis (principal); T83.8 Other specified complications of genitourinary prosthetic devices, implants and grafts; R31.9 Hematuria, unspecified
CPT/HCPCS: 76770

== ENCOUNTER 2023-03-05 17:02 | Emergency (ER) | payer BC, SELFPAY ==
[2023-03-05 17:25] VITALS: BP 150/75; PULSE 78; RESP 18; TEMP 36.1; O2SAT 98
--- NOTE | 2023-03-05 18:05 | ED.SKABFB ---
HPI - Skin/Abscess/Foreign Bdy General Chief complaint: Skin/Abscess/Foreign Body Stated complaint: rash Source: patient Mode of arrival: ambulatory Limitations: no limitations History of Present Illness HPI narrative: 67-year-old female presenting for complaint of red rash to bilateral lower extremities, first noted yesterday. States this started out pink in color on has spread. Right leg is now bright red in color and more extensive. Rash is only from below knees to ankles. Endorses mild itching. She applied Benadryl cream. She denies any trauma. Denies pain or drainage to the sites. Denies lip, tongue, or throat swelling, shortness of breath or wheezing. Denies changes to soap, detergent, lotion, or any other exposures. No one else in the house or any contacts with similar symptoms. Not taking blood thinner. Related Data Home Medications Medication Instructions Recorded Confirmed calcium carb-vit D3-minerals 600 2 tablet PO DAILY 07/12/20 01/16/23 mg calcium-400 unit tablet folic acid 0.8 mg capsule 0.8 mg PO DAILY 07/12/20 01/16/23 mecobalamin (vitamin B12) 1,000 1,000 mcg sublingual DAILY 07/12/20 01/16/23 mcg disintegrating tablet,sublingual cholecalciferol (vitamin D3) 25 2,000 unit PO DAILY 03/23/21 01/16/23 mcg (1,000 unit) capsule Allergies Allergy/AdvReac Type Severity Reaction Status Date / Time No Known Allergies Allergy Verified 01/16/23 07:02 Review of Systems Review of Systems: CONSTITUTIONAL: Denies body aches, fever, chills, or sweats. EYES: Denies visual changes, redness, or discharge. ENT: Denies rhinorrhea, congestion CARDIOVASCULAR: Denies chest pain, palpitations. RESPIRATORY: Denies cough or dyspnea. GASTROINTESTINAL: Denies abdominal pain, nausea, vomiting, or diarrhea. SKIN: Reports red rash to legs MUSCULOSKELETAL: Denies back pain, joint pain, or myalgia. NEUROLOGIC: Denies headache, numbness, tingling, or weakness. [facility] Past Medical History Medical History BMI 22.0-22.9, adult Colon cancer screening DJD (degenerative joint disease) Encounter for preventive health examination Encounter for routine adult health examination without abnormal findings Encounter for screening mammogram for malignant neoplasm of breast Hematuria History of colon polyps History of hydronephrosis History of vaginal delivery x 2 Hyperlipidemia On fdc drug therapy Osteoarthritis of left knee Prediabetes Prolapsed bladder Uterine prolapse Vitamin D deficiency Surgical History Surgical History History of hysterectomy, supracervical History of kidney surgery History of sacrocolpopexy Status post total left knee replacement 04/21/2022 Total knee replacement status Family History Family History Father Family history of diabetes mellitus in first degree relative Diabetes mellitus Mother Family history of cardiovascular disease Family history of aortic aneurysm Social History Social History Smoking status: Never smoker Second hand tobacco smoke exposure: No Additional smoking assessment comments: PT DENIES ALL FORMS OF TOBACCO USE Alcohol intake: never Substance use: never Substance use type: does not use Lack of Transportation: No Lack of Food: Never True Current Housing: I Have Housing Concerned About Future Housing: No Difficulty Paying for Meds: No Currently Unemployed: No Education: Associate Degree Difficulty w/ Childcare or Family Care: No Living arrangements: with family Spiritual care concerns: No Comments At time of signature, I have reviewed and agree with nursing past medical, surgical, social and family history unless otherwise noted. Please see nursing chart for further information. There
== END 2023-03-05 18:15 | disposition home or self-care (01) ==
PROVIDERS: Emergency Provider Nurse Practitioner Family; PCP Internal Medicine
DX: R23.3 Spontaneous ecchymoses (principal); E78.5 Hyperlipidemia, unspecified; M17.12 Unilateral primary osteoarthritis, left knee; R73.03 Prediabetes; E55.9 Vitamin D deficiency, unspecified; Z96.652 Presence of left artificial knee joint
CPT/HCPCS: 99213; G0463

== ENCOUNTER 2023-03-26 12:49 | Outpatient (CLI) | payer BC, SELFPAY ==
--- NOTE | ~2023-03-26 | CT_ITS ---
EXAMINATION: CT abdomen pelvis wo/w con DATE: 03/26/2023 13:39 INDICATION: UPJ obstruction TECHNIQUE: Computed tomography (CT) of the abdomen and pelvis was performed without intravenous contr ast. CT of the abdomen and pelvis was then performed with a total of 130 mL Omnipaque 350 intravenous contrast using a double-bolus technique for simultaneous opacification of the renal parenchyma and r enal collecting system. The dose-length product (DLP) was 782.48 mGy-cm. Automated exposure control a nd iterative reconstruction technique were employed. COMPARISON: 11/14/2020 FINDINGS: Minimal dependent atelectasis is present in the lung bases. The heart size is normal. There is a small sliding hiatal hernia. The liver, spleen, pancreas, gallbladder, and adrenal glands are n ormal. There is chronic moderate to severe right hydronephrosis with abrupt transition at the uretero pelvic junction. There is mild to moderate left hydronephrosis also with abrupt transition at the ure teropelvic junction. No stones are identified in the kidneys, ureters, or bladder. No suspicious sherri l or urothelial lesion identified. No pathologically enlarged abdominal or pelvic lymph nodes are dahlia ntified. No free intraperitoneal gas or evidence of bowel obstruction. There is calcified atheroscler osis of the aorta and many of the other arteries. The appendix is normal. There is severe lumbar spon dylosis. IMPRESSION: 1. Moderate to severe right and mild to moderate left hydronephrosis with abrupt transition at the ur eteropelvic junctions. No suspicious renal or urothelial lesion identified. Reviewed, dictated and finalized at location L. IMPRESSION: 1. Moderate to severe right and mild to moderate left hydronephrosis with abrup t transition at the ureteropelvic junctions. No suspicious renal or urothelial lesion identified.
--- NOTE | ~2023-03-26 | NM_ITS ---
EXAMINATION: NM lasix renal scan DATE: 03/26/2023 14:57 INDICATION: Right UPJ obstruction TECHNIQUE: 6.9 mCi Tc-99m MAG3 was administered IV. 40 mg furosemide was administered IV immediately afterward. The patient was scanned in the supine position. A posterior abdominal radionuclide angiog nano was obtained. A subsequent time course of static images of the kidneys, ureters, and bladder was obtained. COMPARISON: CT dated 03/26/2023 and Lasix renal scan dated 08/26/2021 FINDINGS: The posterior abdominal radionuclide angiogram and sequential static images show normal size, positio n, and morphology of the kidneys. Peak renal parenchymal uptake was 1.8 min in left kidney and 4.4 mi n in right kidney (normal peak 3-5 minutes). The relative early renal uptake was 42% on the left and 58% on the right (<40% is abnormal). Right hydronephrosis with dilated right renal collecting system with No abnormalities of the ureters or bladder are seen. T1/2 for clearance of activity from the left kidney and proximal collecting system was 14.7 minutes. T1/2 for clearance of activity from the right kidney and proximal collecting system was >30 minutes. Notes on interpretation: T1/2 <10 minutes is normal, 10-15 minutes is low grade obstruction of questi onable clinical significance, 15-20 minutes is partial obstruction that is likely clinically signific ant, >20 minutes is high grade obstruction. Note that false positives may be seen with supine positio paul, dehydration, severely dilated nonobstructed kidney, atonic collecting system, poor renal functi on, and chronic furosemide use. IMPRESSION: 1. Borderline decreased left renal function which contributes 42% of total renal function. 2. Mild delayed activity clearance from the left kidney consistent with low-grade obstruction of janet btful clinical significance and persistent severely decreased activity clearance from the right kidne y which would be consistent with high-grade obstruction. As previously noted however given the relati vely preserved renal function in the right kidney the degree of obstruction may be exaggerated by the persistent chronic elevation of the right renal pelvis. Reviewed, dictated and finalized at location A. IMPRESSION: 1. Borderline decreased left renal function which contributes 42% of total malaika al function. 2. Mild delayed activity clearance from the left kidney consistent with low-gr sara obstruction of doubtful clinical significance and persistent severely decre ased activity clearance from the right kidney which would be consistent with hi gh-grade obstruction. As previously noted however given the relatively preserve d renal function in the right kidney the degree of obstruction may be exaggerat ed by the persistent chronic elevation of the right renal pelvis.
[2023-03-26 13:22] LABS: Estimated Glomerular Filt Rate 50
== END 2023-03-26 12:50 | disposition home or self-care (01) ==
PROVIDERS: PCP Internal Medicine; Visit Provider Urology
DX: N13.5 Crossing vessel and stricture of ureter without hydronephrosis (principal); R94.4 Abnormal results of kidney function studies
CPT/HCPCS: 74178; 78708; A9562; J1940; Q9967

== ENCOUNTER → 2023-05-18 10:22 | Outpatient (CLI) | payer BC, SELFPAY ==
--- NOTE | ~2023-05-18 | US_ITS ---
US retroperitoneal comp 05/18/2023 10:39 Procedure: Realtime transabdominal ultrasound of the kidneys and bladder. Indication: UPJ obstruction. Hematuria. Comparison: Ultrasound dated 03/02/2023 Findings: Renal echotexture is normal bilaterally without contour deforming mass or renal calculus. T here is bilateral hydronephrosis, right greater than left. The right kidney measures 9.6 cm and left kidney measures 10.7 cm. Bladder within normal limits. Impression: 1: Bilateral hydronephrosis, left greater than right. Reviewed, dictated and finalized at location B. Impression: 1: Bilateral hydronephrosis, left greater than right.
== END ==
PROVIDERS: PCP Internal Medicine; Visit Provider Urology
DX: N13.30 Unspecified hydronephrosis (principal)
CPT/HCPCS: 76770

== ENCOUNTER 2023-11-17 16:25 | Outpatient (CLI) | payer BC, SELFPAY ==
--- NOTE | ~2023-11-17 | MM_ITS ---
EXAMINATION: MM screening светлана BI w johana HISTORY: Screening mammogram TECHNIQUE: Craniocaudal and mediolateral oblique 3-D tomosynthesis images were obtained and synthetic 2-D images were generated. CAD analysis was submitted and interpreted. COMPARISON: October 02, 2022, June 25, 2021 bilateral screening mammogram examinations BREAST PARENCHYMAL COMPOSITION: There are scattered areas of fibroglandular density. FINDINGS: There is no evidence of suspicious mass, calcification, or architectural distortion to sugg est malignancy in either breast. There has been no suspicious interval change. IMPRESSION: 1. No mammographic evidence of malignancy. 2. Recommend routine screening mammography in one year. BI-RADS Category 1: Negative Reviewed, dictated and finalized at location A.
== END 2023-11-17 16:26 | disposition home or self-care (01) ==
LOC: ANHIMG 16:28
PROVIDERS: PCP Internal Medicine; Visit Provider Obstetrics & Gynecology
DX: Z12.31 Encounter for screening mammogram for malignant neoplasm of breast (principal)
CPT/HCPCS: 77063; 77067

== ENCOUNTER 2023-12-02 10:50 | Outpatient (CLI) | payer BC, SELFPAY ==
--- NOTE | ~2023-12-02 | US_ITS ---
Renal-Bladder ultrasound Clinical History: Hydronephrosis Technique: Real-time sonographic imaging of the kidneys and urinary bladder was performed. Findings: The right kidney measures 11.8 cm in length and the left kidney measures 10.5 cm. There is no hydronephrosis or renal calculus identified. Renal cortical echogenicity is within normal limits. No renal mass lesion is identified. The urinary bladder is moderately distended at the time of this exam. No intraluminal echoes are iden tified. No abnormal wall thickening is seen. Impression: Unremarkable ultrasound of the kidneys and urinary bladder. Reviewed, dictated and finalized at location M. Impression: Unremarkable ultrasound of the kidneys and urinary bladder.
== END 2023-12-02 10:51 ==
LOC: MICIMG 10:51
PROVIDERS: PCP Internal Medicine; Visit Provider Urology
DX: N13.30 Unspecified hydronephrosis (principal)
CPT/HCPCS: 76775

== ENCOUNTER 2023-12-07 12:47 | Outpatient (CLI) | payer BC, SELFPAY ==
--- NOTE | ~2023-12-07 | NM_ITS ---
EXAMINATION: MAIK carlton renal scan DATE: 12/08/2023 07:37 INDICATION: Hydronephrosis. TECHNIQUE: 7.8 mCi Tc-99m MAG3 was administered IV. 40 mg furosemide was administered IV immediately afterward. The patient was scanned in the supine position. A posterior abdominal radionuclide angiog nano was obtained. A subsequent time course of static images of the kidneys, ureters, and bladder was obtained. COMPARISON: Renal scan 03/26/2023, CT abdomen and pelvis 03/26/2023, kidney ultrasound 12/02/2023 FINDINGS: The posterior abdominal radionuclide angiogram and sequential static images show normal siz e, position, and morphology of the kidneys. Peak renal parenchymal uptake was 4 min in right kidney a nd 3 min in left kidney (normal peak 3-5 minutes). The relative early renal uptake was 52% on the ri ght and 48% on the left (<40% is abnormal). No abnormalities of the ureters or bladder are seen. T1/2 for clearance of activity from the right kidney and proximal collecting system was 16 minutes. T1/2 for clearance of activity from the left kidney and proximal collecting system was 8 minutes. IMPRESSION: 1. Symmetric kidney function. 2. Mildly delayed contrast clearance from right kidney suggesting partial obstruction. The lack of h ydronephrosis on the ultrasound from 12/02/2023 suggests this finding may not be clinically significan t. Reviewed, dictated and finalized at location A. IMPRESSION: 1. Symmetric kidney function. 2. Mildly delayed contrast clearance from right kidney suggesting partial obst ruction. The lack of hydronephrosis on the ultrasound from 12/02/2023 suggests t his finding may not be clinically significant.
== END 2023-12-07 12:48 | disposition home or self-care (01) ==
LOC: ANHIMG 12:48
PROVIDERS: PCP Internal Medicine; Visit Provider Urology
DX: N13.30 Unspecified hydronephrosis (principal)
CPT/HCPCS: 78708; A9562

== ENCOUNTER 2023-12-22 00:12 | Day surgery (SDC) | payer BC, SELFPAY ==
[2023-12-07 14:25] VITALS: BMI 25.5
[2023-12-22 08:54] VITALS: BP 130/78; PULSE 74; RESP 20; TEMP 36.4; O2SAT 100; BMI 25.1
[2023-12-22] MEDS: LACTATED RINGERS 1,000 ML 150 ML IV CONT (08:57)
--- NOTE | 2023-12-22 09:58 | WPDANESEPPF ---
Anes - Initial Pre Proc Eval Procedure: Operation Date: 12/22/23 10:00 Proposed Procedures p Screening Colonoscopy - Estrada Hutson DO Date/Time: 12/22/23 09:58 Surgeon: Estrada Hutson DO Pre Op Diagnosis: History of colon polyps Patient Data Age: 68 Gender: F Height: 1.6 m Weight: 64.3 kg Last Vital Signs Temp 97.6 F 12/22/23 08:54 Pulse 74 12/22/23 08:54 Resp 20 12/22/23 08:54 BP 130/78 12/22/23 08:54 Pulse Ox 100 12/22/23 08:54 O2 Del Method Room Air 12/22/23 08:54 Allergies Allergy/AdvReac Type Severity Reaction Status Date / Time No Known Allergies Allergy Verified 12/22/23 08:52 Home Medications Medication Instructions Recorded Confirmed Type calcium carb-vit D3-minerals 600 2 tablet PO DAILY 07/12/20 12/22/23 History mg calcium-400 unit tablet folic acid 0.8 mg capsule 0.8 mg PO DAILY 07/12/20 12/22/23 History mecobalamin (vitamin B12) 1,000 1,000 mcg sublingual DAILY 07/12/20 12/22/23 History mcg disintegrating tablet,sublingual cholecalciferol (vitamin D3) 25 2,000 unit PO DAILY 03/23/21 12/22/23 History mcg (1,000 unit) capsule ezetimibe 10 mg tablet See Rx Instructions .Route 01/16/23 12/22/23 Rx .COMPLEX #90 tabs rosuvastatin 40 mg tablet See Rx Instructions .Route 10/01/23 12/22/23 Rx .COMPLEX #90 tabs Patient hx anesthesia problems: none Family hx anesthesia problems: none Results Review: All pre-operative results and documents have been reviewed as part of the pre-operative evaluation. [facility] Past Medical History Medical History (Updated 11/10/23 @ 08:14 by Anastasia Pete, [facility]) BMI 22.0-22.9, adult DJD (degenerative joint disease) Hematuria History of colon polyps History of hydronephrosis History of vaginal delivery x 2 Hyperlipidemia On terminal make up operator drug therapy Osteoarthritis of left knee Prediabetes Prolapsed bladder Skin lesion Vitamin D deficiency Surgical History Surgical History History of hysterectomy, supracervical History of kidney surgery History of sacrocolpopexy Status post total left knee replacement 04/21/2022 Total knee replacement status Family History Family History Father Family history of diabetes mellitus in first degree relative Diabetes mellitus Mother Family history of cardiovascular disease Family history of aortic aneurysm Social History Social History Smoking status: Never smoker Second hand tobacco smoke exposure: No Additional smoking assessment comments: PT DENIES ALL FORMS OF TOBACCO USE Alcohol intake: current Alcohol use details: Rarely Substance use: never Substance use type: does not use Lack of Transportation: No Lack of Food: Never True Current Housing: I Have Housing Concerned About Future Housing: No Difficulty Paying for Meds: No Currently Unemployed: No Education: Associate Degree Difficulty w/ Childcare or Family Care: No Living arrangements: other Additional living arrangements comments: with sp Spiritual care concerns: No Anes - Eval Final PreProcedure Day of Procedure 12/22/23 09:58 Patient weight: normal Heart: regular rate and rhythm Lungs: clear to auscultation Airway: Mallampati scale class II Neurological: alert and oriented Last oral intake: >/= 8 hours ASA classification: II Emergent: no Anesthetic plan: proceed Anesthesia type and monitoring: general GIVS and standard monitoring Results Review: All pre-operative results and documents have been reviewed as part of the pre-operative evaluation. Informed Consent: The patient's anesthetic plan and its attendant risks and benefits were discussed with the patient/family/POA. Questions were solicited and answers provided to the satisfaction of the patient/family/POA.
--- NOTE | 2023-12-22 10:46 | PM.IMHP ---
H&P: HPI History of Present Illness Date/Time: 12/22/23 10:46 Chief Complaint: History of colon polyps Narrative: This is a 68-year-old woman who presents for colonoscopy. Her last colonoscopy was 5 years ago and polyps were removed at that time. She denies any hematochezia or melena. She denies any family history of colon cancer. Review of Systems Review of Systems: All systems reviewed & are unremarkable except as noted in HPI and below Constitutional: Constitutional: Denies chills, Denies fever(s), Denies headache(s) and Denies weight loss Eyes: Eyes: Denies change in vision ENT: Denies dizziness, Denies headache(s), Denies neck mass and Denies throat swelling Cardiovascular: Cardiovascular: Denies chest pain, Denies lightheadedness and Denies dyspnea Respiratory: Respiratory: Denies cough, Denies dyspnea and Denies wheezing Gastrointestinal: Gastrointestinal: Denies abdominal pain, Denies change in bowel habits, Denies nausea and Denies vomiting Genitourinary: Genitourinary: Denies hematuria and Denies dysuria Musculoskeletal: Musculoskeletal: Reports as per HPI Integumentary/Breasts: Skin/Breast: Reports as per HPI Neurologic: Denies dizziness and Denies headache(s) Allergic/Immunologic: Allergic/Immunologic: Denies throat swelling and Denies wheezing [facility] Past Medical History Medical History (Updated 11/10/23 @ 08:14 by Anastasia Pete CMA) BMI 22.0-22.9, adult DJD (degenerative joint disease) Hematuria History of colon polyps History of hydronephrosis History of vaginal delivery x 2 Hyperlipidemia On custodial drug therapy Osteoarthritis of left knee Prediabetes Prolapsed bladder Skin lesion Vitamin D deficiency Surgical History Surgical History History of hysterectomy, supracervical History of kidney surgery History of sacrocolpopexy Status post total left knee replacement 04/21/2022 Total knee replacement status Family History Family History Father Family history of diabetes mellitus in first degree relative Diabetes mellitus Mother Family history of cardiovascular disease Family history of aortic aneurysm Social History Social History Smoking status: Never smoker Second hand tobacco smoke exposure: No Additional smoking assessment comments: PT DENIES ALL FORMS OF TOBACCO USE Alcohol intake: current Alcohol use details: Rarely Substance use: never Substance use type: does not use Lack of Transportation: No Lack of Food: Never True Current Housing: I Have Housing Concerned About Future Housing: No Difficulty Paying for Meds: No Currently Unemployed: No Education: Associate Degree Difficulty w/ Childcare or Family Care: No Living arrangements: other Additional living arrangements comments: with sp Spiritual care concerns: No Meds Home Medications and Allergies Home Medications Medication Instructions Recorded Confirmed Type calcium carb-vit D3-minerals 600 2 tablet PO DAILY 07/12/20 12/22/23 History mg calcium-400 unit tablet folic acid 0.8 mg capsule 0.8 mg PO DAILY 07/12/20 12/22/23 History mecobalamin (vitamin B12) 1,000 1,000 mcg sublingual DAILY 07/12/20 12/22/23 History mcg disintegrating tablet,sublingual cholecalciferol (vitamin D3) 25 2,000 unit PO DAILY 03/23/21 12/22/23 History mcg (1,000 unit) capsule ezetimibe 10 mg tablet See Rx Instructions .Route 01/16/23 12/22/23 Rx .COMPLEX #90 tabs rosuvastatin 40 mg tablet See Rx Instructions .Route 10/01/23 12/22/23 Rx .COMPLEX #90 tabs Allergies Allergy/AdvReac Type Severity Reaction Status Date / Time No Known Allergies Allergy Verified 12/22/23 08:52 Vital Signs Vital Signs - 24 hr 12/22/23 08:54 Temperature 36.4 C Pulse Rate 74 Respiratory Rate 20 Blood Pressu
[2023-12-22 11:15] VITALS: BP 105/59; PULSE 65; RESP 17; O2SAT 99
[2023-12-22 11:25] VITALS: BP 104/62; PULSE 63; RESP 19; O2SAT 100
[2023-12-22 11:35] VITALS: BP 122/75; PULSE 64; RESP 18; O2SAT 100
== END 2023-12-22 11:45 | disposition home or self-care (01) ==
PROVIDERS: PCP Internal Medicine; Visit Provider Surgery
PROC: 0DJD8ZZ Inspection of Lower Intestinal Tract, Via Natural or Artificial Opening Endoscopic (ICD-10-PCS; CPT 45378; principal; 2023-12-22 10:00)
DX: Z12.11 Encounter for screening for malignant neoplasm of colon (principal); E78.5 Hyperlipidemia, unspecified; M17.12 Unilateral primary osteoarthritis, left knee; R73.03 Prediabetes; E55.9 Vitamin D deficiency, unspecified; N81.10 Cystocele, unspecified; Z98.890 Other specified postprocedural states; Z96.652 Presence of left artificial knee joint; Z86.010 Personal history of colon polyps; Z87.2 Personal history of diseases of the skin and subcutaneous tissue; Z82.49 Family history of ischemic heart disease and other diseases of the circulatory system
CPT/HCPCS: 45378; J2704; J7120

== ENCOUNTER 2024-10-12 08:12 | Emergency (ER) | payer BC, SELFPAY ==
--- OUTSIDE RECORDS SUMMARY | 2024-10-12 08:18 | XMS_ITS | Referral Summary ---
Author Organization [facility] Address [address] [place] [address] Care Team Providers Care Dental Office Receptionist Name Role Phone Deon Camara MD Primary Care Provider [phone] Rei Vizcarra MD Unavailable [phone] Allergies No known active allergies Medications calcium carb/vit D3/minerals (CALCIUM-VITAMIN D ORAL) Take 1 tablet by mouth 2 (two) times a day Active cholecalciferol (VITAMIN D-3) 2000 unit capsule Take 2,000 Units by mouth daily Active cyanocobalamin (Vitamin B-12) 1,000 mcg tabletIndication s:Prevention of Vitamin B12 Deficiency Take 1,000 mcg by mouth daily Active ezetimibe (ZETIA) 10 mg tablet Take 10 mg by mouth daily Active folic acid (FOLVITE) 800 mcg tablet Take 400 mcg by mouth daily Active rosuvastatin (CRESTOR) 40 mg tablet Take 40 mg by mouth daily Active Active Problems Problem Noted Date Diagnosed Date UPJ stricture, 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 Monthly or less 04/09/2021 Q2: How many drinks containi ng alcohol do you have on a typical day when you are drinking? 1 or 2 04/09/2021 Q3: How often do you have si x or more drinks on one occasion? Never 04/09/2021 Comments Unknown Sex and Gender Information Value Date Recorded Sex Assigned at Not on file Legal Sex Female 8:29 AM CDT Gender Identity Not on file Sexual Orientation Not on file Last Filed Vital Signs Vital Sign Reading Time Taken Comments Blood Pressure 146/76 04/10/2021 12:00 PM CDT Pulse 69 04/10/2021 12:00 PM CDT Temperature 37.3 C (99.2 F) 04/10/2021 12:00 PM CDT Respiratory Rate 18 04/10/2021 12:00 PM CDT Oxygen Saturation 100% 04/10/2021 12:00 PM CDT Inhaled Oxygen Concentration - - Weight 62.7 kg (138 lb 3.2 oz) 04/09/2021 12:01 PM CDT Height 160 cm (5' 3 ) 03/29/2021 8:40 AM CDT Body Mass Index 24.48 03/29/2021 8:40 AM CDT Plan of Treatment Not on file Medical Devices Implanted Type Area Tailoring Teacher Device Identifier Shelf Expiration Date Model / Serial / Lot [employer] Veronique 180-222 Contour 6fr 24cm Large Inner Lumen Low Profile Bladder Roger Taper Latex Free - [id number] Implanted:Qty: 1 on 04/09/2021 by Rei Vizcarra MD at [facility] Right: [employer] [place] [employer] Veronique 01/29/2024 180-222 / / [id number] Insurance [employer] OOS A[employer] OOS Advance Directives For more information, please contact: [phone] Documents on File Type Date Recorded Patient Web Site Project Manager Expl anation ADVANCE DIRECTIVE 05/09/2021 1:44 PM Power of Caterers Helper-Financial/Medical * Full Code (Latest Code Status on File) Date Activated Date Inactivated Comments 04/09/2021 7:02 PM 04/10/2021 9:30 PM Care Teams Dental Office Receptionist Relationship Specialty Start Date End Date Deon Camara MD [address] [place] [address] PCP - General Internal Medicine 03/29/21 [place] [address] [place] [address] Consulting Physician Urology 04/10/21
--- OUTSIDE RECORDS SUMMARY | 2024-10-12 08:18 | XMS_ITS | Encounter Summary ---
Author Organization [facility] Address [address] [place] [address] Care Team Providers Care Spinal Surgeon Name Role Phone Deon Camara MD Primary Care Provider [phone] Encounter Details Date Type Department Care Team (Late st Contact Info) Description 12/06/[address] [facility] Pre-Admission Testing [address] [place], [place] [id number] Rei Vizcarra MD [address] [facility] [place], [place] [id number] Social History Tobacco Use Types Packs/Day Years Used Date Smoking Tobacco: Never Smokeless Tobacco: Never Alcohol Use Standard Drinks/Week Comments Not Currently 0 (1 standard drink = 0.6 oz pur e alcohol) rarely Comments No Sex and Gender Information Value Date Recorded Sex Assigned at Not on file Legal Sex Female 9:10 AM CDT Gender Identity Not on file Sexual Orientation Not on file COVID-19 Exposure Response Date Recorded In the last month, have you been in contact with someone who was confirmed or suspected to have Coronavirus / COVID-19? No / Unsure 12/06/2020 1:42 PM CDT documented as of this encounter Plan of Treatment Not on file documented as of this encounter Visit Diagnoses Diagnosis Preop examination- Primary Preoperative examination, unspecified documented in this encounter Additional Health Concerns Infection Onset Date Last Indicated Resolved Time COVID-19 Rule Out 12/10/2020 12/10/2020 12/10/2020 11:03 AM CDT COVID-19 Rule Out 12/10/2020 12/10/2020 12/10/2020 8:19 PM CDT documented as of this encounter Care Teams Spinal Surgeon Relationship Specialty Start Date End Date Deon Camara MD [address] - [facility] [address] [place] [id number] PCP - General INTERNAL MEDICINE 12/05/20 documented as of this encounter
--- OUTSIDE RECORDS SUMMARY | 2024-10-12 08:18 | XMS_ITS | Clinical Summary ---
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 Surgical History Surgery Date Site/Laterality Comments HYSTERECTOMY WISDOM TOOTH EXTRACTION COLONOSCOPY Medical History Medical History Date Comments HLD (hyperlipidemia) Obstruction of right ureteropelvic junction (UPJ ) Social History Tobacco Use Types Packs/Day Years [...] on file Sexual Orientation Not on file Obstetrics History Last Filed Vital Signs Vital Sign Reading [...] on file Medical Devices Implanted Type Area Liquefaction And Regasification Helper Device Identifier Shelf Expiration Date Model / Serial / Lot [employer] Veronique 180-222 Contour 6fr 24cm Large Inner Lumen Low Profile Bladder Roger T[employer] Latex Free - [id number] Implanted:Qty: 1 on 04/09/2021 by Rei Vizcarra MD at [facility] Right: U[employer]ter [employer] Veronique 01/29/2024 180-222 / / [id number] [place] [address] [facility] CHOICE OOS BLUE ACC CHOICE OOS Advance Directives For more information, please contact: [phone] Documents on File Type Date Recorded Patient Supervisor Core Drilling Expl anation ADVANCE DIRECTIVE 05/09/2021 1:44 PM Power of Paper Grader-Financial/Medical * Full Code (Latest Code Status on File) Date Activated Date Inactivated Comments 04/09/2021 7:02 PM 04/10/2021 9:30 PM Care Teams Mechanical Technologist Relationship Specialty Start Date End Date Deon Camara MD [address] [place] [address] PCP - General Internal Medicine 03/29/21 [place] [address] [place] [address] Consulting Physician Urology 04/10/21
--- OUTSIDE RECORDS SUMMARY | 2024-10-12 08:18 | XMS_ITS | Clinical Summary ---
Author Organization [facility] Address [address] [place] [address] Care Team Providers Care Entry Level Business Analyst Name Role Phone Deon Camara MD Primary Care Provider [phone] Allergies No known active allergies Medications rosuvastatin 40 MG tablet Take 40 mg by mouth daily. Active ezetimibe 10 MG tablet Take 5 mg by mouth daily. Active calcium carb-cholecalci ferol 600-400 MG-UNIT Tab tablet Take 2 tablets by mouth daily. Active Cholecalciferol (VITAMIN D3) 25 MCG (1000 UT) Cap Take 1 tablet by mouth daily. Active vitamin B-12 (CYANOCOBALAMIN ) 1000 mcg tablet Take 1,000 mcg by mouth daily. Active folic acid 400 MCG tablet Take 800 mcg by mouth daily. Active oxybutynin XL 5 MG 24 hr tablet Take 1 tablet (5 mg total) by mouth daily. 30 tablet 1 12/12/2020 Active Active Problems Problem Noted Date Diagnosed Date Obstruction of right ureteropelvic junction (UPJ ) 12/12/2020 Family History Medical History Relation Comments MVP Brother 1 Diabetes Father Heart Disease Father Heart valve disease Mother Relation Status Comments Brother 1 Alive Brother 2 Alive Daughter 1 Alive Daughter 2 Alive Father Mother Social History Tobacco Use Types Packs/Day Years [...] Sign Reading Time Taken Comments Blood Pressure 152/82 12/12/2020 3:45 PM CDT Pulse 72 12/12/2020 3:45 PM CDT Temperature 36.1 C (97 F) 12/12/2020 3:45 PM CDT Respiratory Rate 16 12/12/2020 3:45 PM CDT Oxygen Saturation 98% 12/12/2020 3:45 PM CDT Inhaled Oxygen Concentration - - Weight 66 kg (145 lb 8.1 oz) 12/12/2020 11:40 AM CDT Height 162.6 cm (5' 4 ) 12/12/2020 11:40 AM CDT Body Mass Index 24.98 12/12/2020 11:40 AM CDT Plan of Treatment Health Maintenance Due Date Last Done Comments Colorectal Cancer Screening Colonoscopy (10 Years) 1956 Hepatitis C 1974 DTaP, Tdap and Td Vaccines ( 1 - Tdap) 11/27/1975 Mammogram Screening 1996 Zoster Vaccines (1 of 2) 2006 Dexa Scan (General) 2021 Pneumococcal Vaccine: 65+ Years (1 of 1 - PCV) 2021 COVID-19 Vaccine (3 - 2023-2 5 season) 2024 11/09/2020, 10/19/2020 Influenza Adult (#1) 2024 05/05/2019, 06/02/2018, 05/12/2017 RSV Immunization or 60+ Years (1 - 1-dose 75+ series) 11/27/2031 Meningococcal B Vaccine Aged Out No l onger eligible based on patient's age to complete this topic Meningococcal Vaccine Aged Out No julio rosalina eligible based on patient's age to complete this topic RSV Immunizations Under 20 Months Aged Out No longer eligible b ased on patient's age to complete this topic Medical Devices Implanted Type Area Factory Clerk Device Identifier Shelf Expiration Date Model / Serial / Lot Stent Ureteral Pigtail 6fr 24cm Crv Taper Tip - [id number] Implanted:Qty : 1 on 12/12/2020 by Rei Vizcarra MD at [facility] Stent Right: Ureter [employer] RICK [id number] 08/24/2023 [id number] / / [id number] Insurance [facility] Care Teams Entry Level Business Analyst Relationship Specialty Start Date End Date Deon Camara MD [address] - [facility] [address] [place] [address] PCP - General INTERNAL MEDICINE 12/05/20
[2024-10-12 08:31] VITALS: BP 142/67; PULSE 80; RESP 17; TEMP 36.8; O2SAT 100
[2024-10-12 08:57] LABS: EDSTREPNEGPOS1 Negative (Negative)
--- NOTE | 2024-10-12 09:20 | ED_ITS ---
HPI - General Adult General Chief complaint: Skin/Abscess/Foreign Body Stated complaint: rash Source: patient Mode of arrival: ambulatory Limitations: no limitations History of Present Illness HPI narrative: Pt presents for evaluation of pruritic rash. Symptom onset yesterday. She first noted symptoms to the right forearm. She now has symptoms to BUE, proximal aspect of BLE and torso. No new lotions, soaps, detergents, topical products, medications or foods. No one else has similar symptoms. No history of similar symptoms. She tried applying benadryl cream without much improvement. Related Data Home Medications ?Medication ?Instructions ?Recorded ?Confirmed ?Last Taken ?Type calcium 600 mg (as carbonate)-vit 2 tablet PO DAILY 07/12/20 08/31/24 12/21/23 History D3 10 mcg (400 unit)-minerals tablet folic acid 0.8 mg capsule 0.8 mg PO DAILY 07/12/20 08/31/24 12/21/23 History mecobalamin (vitamin B12) 1,000 1,000 mcg sublingual DAILY 07/12/20 08/31/24 12/21/23 History mcg disintegrating tablet,sublingual cholecalciferol (vitamin D3) 25 2,000 unit PO DAILY 03/23/21 08/31/24 12/21/23 History mcg (1,000 unit) capsule Allergies Allergy/AdvReac Type Severity Reaction Status Date / Time No Known Allergies Allergy Verified 10/12/24 08:31 Review of Systems Review of Systems: CONSTITUTIONAL: Denies fever, chills, or sweats. EYES: Denies visual changes, redness, or discharge. ENT: Denies rhinorrhea, congestion, sore throat, or otalgia. CARDIOVASCULAR: Denies chest pain, palpitations, or edema. RESPIRATORY: Denies cough or dyspnea. GASTROINTESTINAL: Denies abdominal pain, nausea, vomiting, or diarrhea. GENITOURINARY: Denies dysuria or hematuria. SKIN: Reports pruritic rash to torso, BUE and proximal aspect of BLE MUSCULOSKELETAL: Denies back pain, joint pain, or myalgia. NEUROLOGIC: Denies headache, numbness, dizziness, or weakness. PSYCHIATRIC: Denies anxiety or depression. [facility] Past Medical History Medical History BMI 26.0-26.9,adult Skin lesion History of hydronephrosis Hematuria History of colon polyps Prediabetes History of vaginal delivery x 2 Osteoarthritis of left knee BMI 22.0-22.9, adult Vitamin D deficiency DJD (degenerative joint disease) Prolapsed bladder On usp drug therapy Hyperlipidemia Surgical History Surgical History Total knee replacement status Status post total left knee replacement 04/21/2022 History of hysterectomy, supracervical History of kidney surgery History of sacrocolpopexy Family History Family History Father Family history of diabetes mellitus in first degree relative Diabetes mellitus Mother Family history of cardiovascular disease Family history of aortic aneurysm Social History Social History Smoking status: Never smoker Second hand tobacco smoke exposure: No Additional smoking assessment comments: PT DENIES ALL FORMS OF TOBACCO USE Alcohol intake: current Alcohol use details: Rarely Substance use: never Substance use type: does not use Lack of Transportation: No Lack of Food: Never True Current Housing: I Have Housing Concerned About Future Housing: No Difficulty Paying for Meds: No Currently Unemployed: No Education: Associate Degree Difficulty w/ Childcare or Family Care: No Living arrangements: other Additional living arrangements comments: with sp Spiritual care concerns: No Exam Narrative: GENERAL: Well-appearing, well-nourished, and in no acute distress. HEAD: Normocephalic, atraumatic. EYES: PERRLA and EOMI. ENT: Nares clear, no rhinorrhea or epistaxis. Mucous membranes moist. Oropharynx without tonsillar hypertrophy exudate or other lesions. Bilateral TMs pearly forbes nonbulging NECK: Supple. No adenopathy or masses. No carotid bruits or JVD CHEST: Clear to auscultation. No respiratory distress. No wheezes rales or rhonchi HEART: Regular rate and rhythm. No murmur heard. Normal peripheral pulses. ABDOMEN: Soft, nontender, nondistended, normal active bowel sounds. EXTREMITIES: Normal range of motion. No edema. SKIN: there are raised areas of erythema and macules in irregular and patchy distribution to the torso, and extremities x 4 NEURO: No focal deficits. Alert and oriented x3. PSYCH: Normal mood and affect. Course Course Emergency Course: This is a 68 year old female who presented for evaluation of a pruritic rash. Will place her on a steroid taper. Hydroxyzine for itching. Increase hydration. Follow up with primary provider. Go to the ER for worsening symptoms. Patient in agreement with plan of care. Level of Care: Express Care Visit Vital Signs Vital signs: Vital Signs Temperature 36.8 C 10/12/24 08:31 Pulse Rate 80 10/12/24 08:31 Respiratory Rate 17 10/12/24 08:31 Blood Pressure 142/67 H 10/12/24 08:31 Pulse Oximetry 100 10/12/24 08:31 Oxygen Delivery Room Air 10/12/24 08:31 Temperature 36.8 C 10/12/24 08:31 Pulse Rate 80 10/12/24 08:31 Respiratory Rate 17 10/12/24 08:31 Blood Pressure 142/67 H 10/12/24 08:31 Pulse Oximetry 100 10/12/24 08:31 Oxygen Delivery Room Air 10/12/24 08:31 Medical Decision Making Vital Signs Vital Signs: Vital Signs Temperature 36.8 C 10/12/24 08:31 Pulse Rate 80 10/12/24 08:31 Respiratory Rate 17 10/12/24 08:31 Blood Pressure 142/67 H 10/12/24 08:31 Pulse Oximetry 100 10/12/24 08:31 Oxygen Delivery Room Air 10/12/24 08:31 Temperature 36.8 C 10/12/24 08:31 Pulse Rate 80 10/12/24 08:31 Respiratory Rate 17 10/12/24 08:31 Blood Pressure 142/67 H 10/12/24 08:31 Pulse Oximetry 100 10/12/24 08:31 Oxygen Delivery Room Air 10/12/24 08:31 Lab Data Labs: Lab Results 10/12/24 Range/Units 08:56 POC Grp A Strep Screen Negative (Negative) Discharge Plan Discharge Clinical Impression: Dermatitis Patient Disposition: Home, Self-Care Condition: Stable Instructions: Antibiotic Form, Dermatitis (ED) Patient Language: Hungarian Prescriptions: New prednisone 20 mg tablet See Rx Instructions .ROUTE .COMPLEX Qty: 14 0RF Rx Instructions: take 2 tabs po daily x 4 days, then 1 tab po daily x 4 days, then 1/2 tab po daily x 4 days hydroxyzine pamoate 25 mg capsule 25 - 50 mg PO QID PRN (Reason: itching) Qty: 30 0RF No Action calcium carbonate-vit D3-min 600 mg calcium- 400 unit tablet 2 tablet PO DAILY Patient Comments: 2 TABS QAM mecobalamin (vitamin B12) 1,000 mcg tablet,disintegrating 1,000 mcg sublingual DAILY Patient Comments: QAM Rx Instructions: place tablet under tongue and allow to dissolve for at least30 secs before swallowing folic acid 0.8 mg capsule 0.8 mg PO DAILY Patient Comments: QAM ezetimibe 10 mg tablet See Rx Instructions .ROUTE .COMPLEX Qty: 90 3RF Dose Instruction: TAKE 1 TABLET BY MOUTH EVERY DAY Patient Comments: QAM Rx Instructions: TAKE 0.5 TABLET BY MOUTH EVERY DAY cholecalciferol (vitamin D3) 25 mcg (1,000 unit) capsule 2,000 unit PO DAILY Patient Comments: QAM rosuvastatin 40 mg tablet See Rx Instructions .ROUTE .COMPLEX Qty: 90 1RF Dose Instruction: TAKE 1 TABLET BY MOUTH EVERY DAY Rx Instructions: TAKE 1 TABLET BY MOUTH EVERY DAY Follow-up/Referrals: Deon Camara MD [Primary Care Provider] - Time of Disposition: 08:59
== END 2024-10-12 09:03 | disposition home or self-care (01) ==
PROVIDERS: Emergency Provider Nurse Practitioner; PCP Internal Medicine
DX: L30.9 Dermatitis, unspecified (principal); R73.03 Prediabetes; M17.12 Unilateral primary osteoarthritis, left knee; E78.5 Hyperlipidemia, unspecified; E55.9 Vitamin D deficiency, unspecified; Z96.652 Presence of left artificial knee joint
CPT/HCPCS: 87081; 87880; 99213; G0463

== ENCOUNTER 2024-12-01 16:08 | Outpatient (CLI) | payer BC, SELFPAY ==
--- NOTE | ~2024-12-01 | MM_ITS ---
EXAMINATION: MM screening светлана BI w johana HISTORY: Screening TECHNIQUE: Craniocaudal and mediolateral oblique 3-D tomosynthesis images were obtained and synthetic 2-D images were generated. CAD analysis was submitted and interpreted. COMPARISON: Comparison to multiple prior studies sequentially, with oldest reviewed study dated 04/29. BREAST PARENCHYMAL COMPOSITION: Not dense: There are scattered areas of fibroglandular density. FINDINGS: There is no evidence of suspicious mass, calcification, or architectural distortion to sugg est malignancy in either breast. There has been no suspicious interval change. IMPRESSION: 1. No mammographic evidence of malignancy. 2. Recommend routine screening mammography in one year. BI-RADS Category 1: Negative Reviewed, dictated and finalized at location A.
--- OUTSIDE RECORDS SUMMARY | 2024-12-01 17:15 | XMS_ITS | Referral Summary ---
Author Organization [facility] Address [address] [place] [address] Care Team Providers Care Teachers' Aide Name Role Phone Deon Camara MD Primary Care Provider [phone] Rei Vizcarra MD Unavailable [phone] Allergies No known active allergies Medications calcium [...] on file Medical Devices Implanted Type Area Service Order Dispatcher Chief Device Identifier Shelf Expiration Date Model / Serial / Lot Plandree Veronique 180-222 Contour 6fr 24cm Large Inner Lumen Low Profile Bladder Roger Taper Latex Free - [id number] Implanted:Qty: 1 on 04/09/2021 by Rei Vizcarra MD at [facility] Right: Ureter [employer] Veronique 01/29/2024 180-222 / / [id number] Insurance [employer] OOS [employer] OOS Advance Directives For more information, please contact: [phone] Documents on File Type Date Recorded Patient Ceramic Mold Designer Expl anation ADVANCE DIRECTIVE 05/09/2021 1:44 PM Power of Seam Press Operator-Financial/Medical * Full Code (Latest Code Status on File) Date Activated Date Inactivated Comments 04/09/2021 7:02 PM 04/10/2021 9:30 PM Care Teams Teachers' Aide Relationship Specialty Start Date End Date Deon Camara MD [address] [place] [address] PCP - General Internal Medicine 03/29/21 [place] [id number] [place] [address] Consulting Physician Urology 04/10/21
--- OUTSIDE RECORDS SUMMARY | 2024-12-01 17:15 | XMS_ITS | Clinical Summary ---
Author Organization [facility] Address [facility] [place] [address] Care Team Providers Care Control Center Operator Name Role Phone Deon Camara MD Primary Care Provider [phone] Rei Vizcarra MD Unavailable [phone] Allergies No known active allergies Medications calcium [...] on file Medical Devices Implanted Type Area Environmental Health Physician Device Identifier Shelf Expiration Date Model / Serial / Lot [employer] Veronique 180-222 Contour 6fr 24cm Large Inner Lumen Low Profile Bladder Roger Taper Latex Free - [id number] Implanted:Qty: 1 on 04/09/2021 by Rei Vizcarra MD at [facility] Right: Ureter [employer] Veronique 01/29/2024 180-222 / / [id number] [place] [address] [facility] CHOICE OOS BLUE ACC CHOICE OOS Advance Directives For more information, please contact: [phone] Documents on File Type Date Recorded Patient Financial Systems Manager Expl anation ADVANCE DIRECTIVE 05/09/2021 1:44 PM Power of Kennel Aide-Financial/Medical * Full Code (Latest Code Status on File) Date Activated Date Inactivated Comments 04/09/2021 7:02 PM 04/10/2021 9:30 PM Care Teams Control Center Operator Relationship Specialty Start Date End Date Deon Camara MD [address] [place] [address] PCP - General Internal Medicine 03/29/21 [place] [address] [place] [address] Consulting Physician Urology 04/10/21
--- OUTSIDE RECORDS SUMMARY | 2024-12-01 17:15 | XMS_ITS | Encounter Summary ---
Author Organization [facility] Address [address] [place] [address] Care Team Providers Care Tinter Photograph Name Role Phone Deon Camara MD Primary Care Provider [phone] Encounter Details Date Type Department Care Team (Late st Contact Info) Description 12/06/2020 Prep for Procedure [facility] Pre-Admission Testing [address] [place], [place] [id number] Rei Vizcarra MD [address] [facility] [place], [place] [id number] Social History Tobacco Use Types Packs/Day Years [...] documented as of this encounter Care Teams Tinter Photograph Relationship Specialty Start Date End Date Deon Camara MD [address] - [facility] [address] [place] [address] PCP - General INTERNAL MEDICINE 12/05/20 documented as of this encounter
--- OUTSIDE RECORDS SUMMARY | 2024-12-01 17:15 | XMS_ITS | Clinical Summary ---
Author Organization [facility] Address [address] [place] [address] Care Team Providers Care Slip Box Changer Name Role Phone Deon Camara MD Primary Care Provider [phone] Allergies No known active allergies Medications rosuvastatin [...] 1 - Tdap) 11/27/1975 Mammogram Screening 1996 Pneumococcal Vaccine: 50+ Years (1 of 1 - PCV) 2006 Zoster Vaccines (1 of 2) 2006 Dexa Scan (General) 2021 COVID-19 Vaccine (3 - 2023-2 5 season) 2024 11/09/2020, 10/19/2020 RSV Immunization or 60+ Years (1 - [...] this topic Medical Devices Implanted Type Area Application Support Technician Device Identifier Shelf Expiration Date Model / Serial / Lot Stent Ureteral Pigtail 6fr 24cm Crv Taper Tip - [id number] Implanted:Qty : 1 on 12/12/2020 by Rei Vizcarra MD at [facility] Stent Right: Ureter [employer]oclones RICK [id number] 08/24/2023 [id number] 20 / [id number] Insurance [facility] Care Teams Slip Box Changer Relationship Specialty Start Date End Date Deon Camara MD [address] [place] [address] PCP - General INTERNAL MEDICINE 12/05/20
== END 2024-12-01 16:09 | disposition home or self-care (01) ==
PROVIDERS: PCP Internal Medicine; Visit Provider Obstetrics & Gynecology
DX: Z12.31 Encounter for screening mammogram for malignant neoplasm of breast (principal)
CPT/HCPCS: 77063; 77067

== ENCOUNTER 2024-12-08 11:20 | Outpatient (CLI) | payer BC, SELFPAY ==
--- NOTE | ~2024-12-08 | DEXA_ITS ---
Bone Density Report Name: UZIEL LORENZ Age: 69 Sex: Female Ethnicity: White Date of : 1955 Indication: osteopenia; parental hip fracture; height loss; hysterectomy; Referring Provider: JERMAINE MARCUS Study: Bone densitometry was performed. Exam Date: December 08, 2024 Accession number: [id number] Bone Density: Region BMD T-score Z-score Classification AP Spine(L1, L2, L3) 0.855 -1.5 0.4 Osteopenia Femoral Neck (Left) 0.661 -1.7 0.0 Osteopenia Total Hip (Left) 0.726 -1.8 -0.4 Osteopenia Femoral Neck (Right) 0.630 -2.0 -0.3 Osteopenia Total Hip (Right) 0.808 -1.1 0.3 Osteopenia Total Hip Mean 0.767 -1.5 -0.1 Osteopenia World Health Organization criteria for BMD impression classify patients as: Normal (T-score at or above -1.0), Osteopenia (T-score between -1.0 and -2.5), or Osteoporosis (T-score at or below -2.5). 10-year Fracture Risk(1): Major Osteoporotic Fracture 19% Hip Fracture 3.0% Reported Risk Factors: [place] (), Neck BMD=0.630, BMI=24.6, parental fracture (1) FRAX(R) Version 3.08. Fracture probability calculated for an untreated patient. Fracture probability may be lower if the patient has received treatment. Previous Exams: Region Exam Age BMD T-score BMD Change BMD Change Date g/cm2 vs Baseline vs Previous AP Spine (L1-L3) 12/08/2024 69 0.855 -1.5 -0.034 (-3.8%) -0.028 (-3.1%) 10/02/2022 66 0.883 -1.2 -0.006 (-0.7%) 0.007 (0.8%) 05/21/2020 64 0.875 -1.3 -0.013 (-1.5%) -0.003 (-0.3%) 04/29/2018 62 0.878 -1.3 -0.010 (-1.2%) -0.010 (-1.2%) 09/27/2014 58 0.889 -1.2 Total Hip(Left) 12/08/2024 69 0.726 -1.8 -0.067 (-8.5%) 0.058 (8.7%)* 10/02/2022 66 0.668 -2.2 -0.126 (-15.8% -0.123 (-15.5% 05/21/2020 64 0.791 -1.2 -0.003 (-0.4%) 0.034 (4.4%)* 04/29/2018 62 0.757 -1.5 -0.036 (-4.6%) -0.036 (-4.6%) 09/27/2014 58 0.793 -1.2 Total Hip(Right) 12/08/2024 69 0.808 -1.1 -0.051 (-5.9%) 0.060 (8.0%)* 10/02/2022 66 0.748 -1.6 -0.111 (-12.9% -0.069 (-8.5%) 05/21/2020 64 0.818 -1.0 -0.041 (-4.8%) -0.011 (-1.3%) 04/29/2018 62 0.829 -0.9 -0.030 (-3.5%) -0.030 (-3.5%) 09/27/2014 58 0.859 -0.7 *Denotes significance at 95% confidence level, LSC for AP Spine = 0.022 g/cm2, LSC for Total Hip = 0.027 g/cm2 Clinical Information Provided by Patient: Parent has had a hip fracture Has used the following medications: Vitamin D, Calcium Has the following medical conditions: Hysterectomy Patient maximum height was 66 No regular weight bearing exercise Drinks caffeinated beverages Onset of menses at age 13 Number of children 2 Impression: The patient has low bone mass, based on the Right Femoral Neck T-score. The patient has an estimated ten-year risk of hip fracture of 3% and an estimated ten-year risk of major fracture of 19%, based on the WHO FRAX algorithm. The patient has risk factors, including: parental hip fracture. The BMD for the AP Spine (L1-L3) decreased, changing by -3.1% since the last DXA exam. Discussion: BONE DENSITY IS LOW AT ONE OR MORE SKELETAL SITES. THE PATIENT'S BMD AND CLINICAL RISK FACTORS CONTRIBUTE TO THIS PATIENT'S INCREASED RISK OF FRACTURE. This patient's lowest T-score is low at one or more skeletal sites. It meets the World Health Organization's (WHO) criteria for ?low bone mass? (T-score between -1.0 and -2.5). The patient's 10-year risk of hip fracture as calculated by FRAX exceeds the threshold where pharmacological therapy is recommended by the National Osteoporosis Foundation (NOF). However, all treatment decisions require clinical judgment and consideration of individual patient factors, including patient preferences, comorbidities, previous drug use, risk factors not captured in the FRAX model (e.g., frailty, falls, vitamin D deficiency, increased bone turnover, interval significant decline in bone density) and possible under or overestimation of fracture risk by FRAX. The patient should follow a healthful lifestyle (good nutrition with adequate calcium and vitamin D, and appropriate weight-bearing exercise). Follow-Up: Consider a repeat BMD and Vertebral Fracture Assessment (VFA) exam in 2 years or sooner if medically necessary, to reassess this patient's status. Reported by: MARIAJOSE on 12/08/2024 12:04:00 PM. Reviewed, dictated and finalized at location AJihan BO
--- OUTSIDE RECORDS SUMMARY | 2024-12-08 13:17 | XMS_ITS | Encounter Summary ---
Author Organization [facility] Address [address] [place] [address] Care Team Providers Care Cranberry Farm Supervisor Name Role Phone Deon Camara MD Primary Care Provider [phone] Encounter Details Date Type Department Care Team (Late st Contact Info) Description 12/06/2020 Prep for Procedure [facility] Pre-Admission Testing [address] [place], [place] [id number] Rei Vizcarra MD 3 [facility] [place], [place] [id number] Social History Tobacco Use Types Packs/Day Years [...] documented as of this encounter Care Teams Cranberry Farm Supervisor Relationship Specialty Start Date End Date Deon Camara MD [address] - [facility] [address] [place] [address] PCP - General INTERNAL MEDICINE 12/05/20 documented as of this encounter
--- OUTSIDE RECORDS SUMMARY | 2024-12-08 13:18 | XMS_ITS | Referral Summary ---
Author Organization [facility] Address [address] [place] [address] Care Team Providers Care Senior Php Software Developer Name Role Phone Deon Camara MD Primary Care Provider [phone] Rei Vizcarra MD Unavailable [phone] Allergies No known active allergies Medications calcium [...] on file Medical Devices Implanted Type Area Supervisor Gluing Device Identifier Shelf Expiration Date Model / Serial / Lot AnTuTu Veronique 180-222 Contour 6fr 24cm Large Inner Lumen Low Profile Bladder Roger Taper Latex Free - [id number] Implanted:Qty: 1 on 04/09/2021 by Rei Vizcarra MD at [facility] Right: Ureter [employer] Veronique 01/29/2024 180-222 / / [id number] Insurance [employer] OOS [employer] OOS Advance Directives For more information, please contact: [phone] Documents on File Type Date Recorded Patient Laboratory Animal Care Veterinarian Expl anation ADVANCE DIRECTIVE 05/09/2021 1:44 PM Power of Editor Greeting Card-Financial/Medical * Full Code (Latest Code Status on File) Date Activated Date Inactivated Comments 04/09/2021 7:02 PM 04/10/2021 9:30 PM Care Teams Senior Php Software Developer Relationship Specialty Start Date End Date Deon Camara MD [address] [place] [address] PCP - General Internal Medicine 03/29/21 [place] [address] [place] [address] Consulting Physician Urology 04/10/21
--- OUTSIDE RECORDS SUMMARY | 2024-12-08 13:18 | XMS_ITS | Clinical Summary ---
Author Organization [facility] Address [facility] [place] [address] Care Team Providers Care Fund Controller Name Role Phone Deon Camara MD Primary Care Provider [phone] Rei Vizcarra MD Unavailable [phone] Allergies No known active allergies Medications calcium [...] on file Medical Devices Implanted Type Area Cyber Security Analyst Device Identifier Shelf Expiration Date Model / Serial / Lot [place] [employer] Veronique 180-222 Contour 6fr 24cm Large Inner Lumen Low Profile Bladder Roger Taper Latex Free - [id number] Implanted:Qty: 1 on 04/09/2021 by Rei Vizcarra MD at [facility] Right: Ureter [place] [employer] Veronique 01/29/2024 180-222 / / [id number] [place] [address] [facility] CHOICE OOS BLUE ACC CHOICE OOS Advance Directives For more information, please contact: [phone] Documents on File Type Date Recorded Patient Senior Data Mining Analyst Expl anation ADVANCE DIRECTIVE 05/09/2021 1:44 PM Power of Supervisor Sandblaster-Financial/Medical * Full Code (Latest Code Status on File) Date Activated Date Inactivated Comments 04/09/2021 7:02 PM 04/10/2021 9:30 PM Care Teams Fund Controller Relationship Specialty Start Date End Date Deon Camara MD [address] [place] [address] PCP - General Internal Medicine 03/29/21 [place] [address] [place] [address] Consulting Physician Urology 04/10/21
--- OUTSIDE RECORDS SUMMARY | 2024-12-08 13:18 | XMS_ITS | Clinical Summary ---
Author Organization [facility] Address [address] [place] [address] Care Team Providers Care University Librarian Name Role Phone Deon Camara MD Primary Care Provider [phone] Allergies No known active allergies Medications rosuvastatin [...] this topic Medical Devices Implanted Type Area Cattery Operator Device Identifier Shelf Expiration Date Model / Serial / Lot Stent Ureteral Pigtail 6fr 24cm Crv Taper Tip - [id number] Implanted:Qty : 1 on 12/12/2020 by Rei Vizcarra MD at [facility] Stent Right: Ureter [employer] RICK [id number] 08/24/2023 [id number] 20 / [id number] Insurance [facility] Care Teams University Librarian Relationship Specialty Start Date End Date Deon Camara MD [address] [place] [address] PCP - General INTERNAL MEDICINE 12/05/20
== END 2024-12-08 11:21 | disposition home or self-care (01) ==
PROVIDERS: PCP Internal Medicine; Visit Provider Obstetrics & Gynecology
DX: M85.89 Other specified disorders of bone density and structure, multiple sites (principal)
CPT/HCPCS: 77080

== ENCOUNTER 2024-12-16 10:27 | Outpatient (CLI) | payer BC, SELFPAY ==
--- NOTE | ~2024-12-16 | US_ITS ---
Renal-Bladder ultrasound Clinical History: Hydronephrosis Technique: Real-time sonographic imaging of the kidneys and urinary bladder was performed. Findings: The right kidney measures 9.1 cm in length and the left kidney measures 10.0 cm. There is m ild bilateral hydronephrosis. No renal stone seen. Renal cortical echogenicity is within normal limit s. No renal mass lesion is identified. The urinary bladder is moderately distended at the time of this exam. No intraluminal echoes are iden tified. No abnormal wall thickening is seen. Impression: Mild bilateral hydronephrosis. Reviewed, dictated and finalized at location M. Impression: Mild bilateral hydronephrosis.
== END 2024-12-16 10:28 | disposition home or self-care (01) ==
LOC: MICIMG 10:27
PROVIDERS: PCP Internal Medicine; Visit Provider Urology
DX: N13.30 Unspecified hydronephrosis (principal)
CPT/HCPCS: 76775

== ENCOUNTER 2025-05-29 09:57 | Outpatient (CLI) | payer BC, SELFPAY ==
--- NOTE | ~2025-05-29 | US_ITS ---
Examination: Ultrasound of the retroperitoneum including kidneys and bladder. Clinical History: Hydronephrosis . Comparison: Renal ultrasound 12/16/2024. Findings: Right kidney: 11 cm. Normal echogenicity. Mild collecting system dilatation. No shadowing calculi. Left kidney: 11 cm. Normal echogenicity. Mild collecting system dilatation. No shadowing calculi. Urinary bladder: No wall thickening or focal abnormality. IMPRESSION: 1. Mild bilateral hydronephrosis persists. Reviewed, dictated and finalized at location R.
== END 2025-05-29 09:58 | disposition home or self-care (01) ==
LOC: MICIMG 09:58
PROVIDERS: PCP Internal Medicine; Visit Provider Urology
DX: N13.30 Unspecified hydronephrosis (principal)
CPT/HCPCS: 76770